=== PATIENT | female | born 1945 | race African-American/Black ===

== ENCOUNTER 2018-09-17 19:49 | Inpatient (IN) ==
[2018-09-17] MEDS ORDERED: ONDANSETRON 4 MG/2 ML VIAL IV STA (20:50)
[2018-09-17 22:50] LABS: Basophils % 0.1 % (0.0-0.8); Eosinophils % 0.1 % (0.00-10.9); Hematocrit 33.8 VOL% (35.7-47.0); Immature Granulocytes % 0.4 %; Immature Granulocytes Absolute 0.03 #; Lymphocytes # 0.2 10*3/uL (1.4-4.0); Lymphocytes % 3.4 % (21.3-54.2); Mean Corpuscular HGB Conc 29.6 GM/DL (32-36); Mean Corpuscular Hemoglobin 29 PG (27-34); Mean Corpuscular Volume 97.7 FL (87-102); Mean Platelet Volume 9.9 FL (9.6-12.0); Monocytes # 0.2 10*3/uL (0.11-0.8); Monocytes % 2.8 % (1.7-12.7); Neutrophils # 6.6 10*3/uL (1.4-7.4); Neutrophils % 93.2 % (38.7-73.9); Platelet Count 165 T/CUMM (130-400); Red Blood Count 3.46 MC/CUMM (3.8-5.5); White Blood Count 7.1 T/CUMM (4-12)
[2018-09-17 23:13] LABS: Albumin 2.8 G/DL (3.4-5.0); Bilirubin,Total 2.8 MG/DL (0.2-1.0); Calcium 7.9 MG/DL (8.5-10.1); Osmolality,Calculated 277.8 MOS/KG (273-304); Potassium 3.3 MMOL/L (3.5-5.1)
[2018-09-18 00:19] LABS: Lymphocytes 4 % (20-55); Platelet Estimate Normal; Segmented Neutrophils 94 % (50-85); Total Cells Counted 100
[2018-09-18] MEDS: HYDROmorphone 2 MG/1 ML VIAL IV PRN (01:30)
[2018-09-18] MEDS: PROMETHAZINE 25 MG/1 ML VIAL IM PRN (01:32)
[2018-09-18 05:09] LABS: Basophils % 0.2 % (0.0-0.8); Hematocrit 38.9 VOL% (35.7-47.0); Hemoglobin 11.3 GM/DL (12.0-16.0); Immature Granulocytes % 0.6 %; Immature Granulocytes Absolute 0.06 #; Lymphocytes # 0.2 10*3/uL (1.4-4.0); Lymphocytes % 1.5 % (21.3-54.2); Mean Corpuscular Hemoglobin 29 PG (27-34); Mean Corpuscular Volume 100.3 FL (87-102); Mean Platelet Volume 10.6 FL (9.6-12.0); Monocytes # 0.1 10*3/uL (0.11-0.8); Monocytes % 1.3 % (1.7-12.7); Neutrophils # 10.1 10*3/uL (1.4-7.4); Neutrophils % 96.4 % (38.7-73.9); Platelet Count 160 T/CUMM (130-400); Red Blood Count 3.88 MC/CUMM (3.8-5.5); Red Cell Distribution Width 17.2 % (9.3-17.3); White Blood Count 10.5 T/CUMM (4-12)
[2018-09-18 05:17] LABS: Albumin 2.9 G/DL (3.4-5.0); Bilirubin,Total 3.7 MG/DL (0.2-1.0); Calcium 8.2 MG/DL (8.5-10.1); Osmolality,Calculated 276.8 MOS/KG (273-304); Potassium 3.3 MMOL/L (3.5-5.1); Total Protein 7.5 G/DL (6.4-8.3)
[2018-09-18 05:32] LABS: Band Neutrophils 10 % (0-10); Lymphocytes 3 % (20-55); Metamyelocytes 3 %; Segmented Neutrophils 82 % (50-85); Total Cells Counted 100
[2018-09-18 05:33] LABS: Hypochromasia 1+; Platelet Estimate Decreased
[2018-09-18] MEDS: LEVOTHYROXINE 100 MCG TABLET PO SCH (05:53)
[2018-09-18] MEDS ORDERED: SUCCINYLCHOLINE 200 MG/10 ML VIAL ONE (09:00)
[2018-09-18] MEDS ORDERED: PROPOFOL 200 MG/20 ML VIAL IV ONE (09:00)
[2018-09-18] MEDS ORDERED: ROCURONIUM 100 MG/10 ML VIAL IV ONE (09:00)
[2018-09-18] MEDS ORDERED: ONDANSETRON 4 MG/2 ML VIAL ONE (09:00)
[2018-09-18] MEDS ORDERED: Sucroferric Oxyhydroxide [Velphoro Chew Tab] 500 MG PO SCH (09:00)
[2018-09-18] MEDS ORDERED: LIDOCAINE 2% 5 ML VIAL ONE (09:00)
[2018-09-18] MEDS ORDERED: PHENYLEPHRINE 1 MG/10 ML SYRINGE IV ONE (09:00)
[2018-09-18] MEDS: CALCIUM ACETATE 667 MG CAPSULE PO SCH ×3 (09:13→16:38)
[2018-09-18] MEDS: CARVEDILOL 3.125 MG TABLET PO SCH ×2 (09:14→20:36)
[2018-09-18] MEDS: DEXTROSE 5% NACL 0.45% 1,000 ML IV SCH (09:35)
[2018-09-18] MEDS ORDERED: SODIUM CHLORIDE 0.9% 500 ML IV PRN (10:14)
[2018-09-18] MEDS ORDERED: INDOMETHACIN SUPP 50 MG SUPP RECTAL ONE (10:16)
[2018-09-18] MEDS: CINACALCET 30 MG TABLET PO SCH (13:11)
[2018-09-18] MEDS ORDERED: GLUCAGON 1 MG VIAL ONE (13:39)
[2018-09-18] MEDS ORDERED: SUGAMMADEX 200 MG/2 ML VIAL IV ONE (14:07)
[2018-09-18] MEDS: SIMVASTATIN 40 MG TABLET PO SCH (20:35)
[2018-09-19] MEDS: DEXTROSE 5% NACL 0.45% 1,000 ML IV SCH ×2 (05:22→12:46)
[2018-09-19 05:23] LABS: Basophils # 0.1 10*3/uL (0.0-0.2); Basophils % 0.3 % (0.0-0.8); Hematocrit 33.2 VOL% (35.7-47.0); Hemoglobin 9.8 GM/DL (12.0-16.0); Immature Granulocytes % 9.1 %; Immature Granulocytes Absolute 2.21 #; Lymphocytes # 0.6 10*3/uL (1.4-4.0); Lymphocytes % 2.4 % (21.3-54.2); Mean Corpuscular HGB Conc 29.5 GM/DL (32-36); Mean Corpuscular Hemoglobin 30 PG (27-34); Mean Corpuscular Volume 100.6 FL (87-102); Mean Platelet Volume 12.5 FL (9.6-12.0); Monocytes # 0.8 10*3/uL (0.11-0.8); Monocytes % 3.3 % (1.7-12.7); Neutrophils # 20.7 10*3/uL (1.4-7.4); Neutrophils % 84.9 % (38.7-73.9); Platelet Count 95 T/CUMM (130-400); Red Cell Distribution Width 17.4 % (9.3-17.3); White Blood Count 24.3 T/CUMM (4-12)
[2018-09-19] MEDS: LEVOTHYROXINE 100 MCG TABLET PO SCH (05:28)
[2018-09-19 05:33] LABS: Albumin 2.1 G/DL (3.4-5.0); Bilirubin,Total 4.3 MG/DL (0.2-1.0); Calcium 7.8 MG/DL (8.5-10.1); Potassium 4.2 MMOL/L (3.5-5.1); Total Protein 6.1 G/DL (6.4-8.3)
[2018-09-19 06:25] LABS: Band Neutrophils 8 % (0-10); Lymphocytes 2 % (20-55); Metamyelocytes 2 %; Platelet Estimate Decreased; Polychromasia Few; Segmented Neutrophils 85 % (50-85); Total Cells Counted 100
[2018-09-19 06:26] LABS: Anisocytosis 2+; Macrocytosis 2+
[2018-09-19] MEDS ORDERED: cefOXitin 1,000 MG in SODIUM CHLORIDE 0.9% 100 ML IV SCH (07:30)
[2018-09-19] MEDS: CALCIUM ACETATE 667 MG CAPSULE PO SCH ×2 (08:51→17:50)
[2018-09-19] MEDS: CARVEDILOL 3.125 MG TABLET PO SCH ×2 (08:52→22:12)
[2018-09-19] MEDS: cefOXitin 1,000 MG in SODIUM CHLORIDE 0.9% 100 ML IV SCH ×2 (08:52→22:12)
[2018-09-19] MEDS ORDERED: LIDOCAINE 1%/EPI INJ 20 ML VIAL ONE (09:58)
[2018-09-19] MEDS ORDERED: TISSUE ADHESIVE 1 EACH APPLICATOR TOP ONE (09:58)
[2018-09-19] MEDS ORDERED: PROPOFOL 200 MG/20 ML VIAL IV ONE (12:23)
[2018-09-19] MEDS ORDERED: SEVOFLURANE 1 UNIT/15 MINUTE INH ONE (12:23)
[2018-09-19] MEDS ORDERED: GLYCOPYRROLATE 0.4 MG/2 ML VIAL ONE (12:24)
[2018-09-19] MEDS ORDERED: KETOROLAC 30 MG/1 ML VIAL ONE (12:24)
[2018-09-19] MEDS ORDERED: ePHEDrine 50 MG/ML AMP ONE (12:24)
[2018-09-19] MEDS ORDERED: ACETAMINOPHEN 1,000 MG/100 ML VIAL IV ONE (12:24)
[2018-09-19] MEDS ORDERED: ONDANSETRON 4 MG/2 ML VIAL ONE ×2 (12:24→12:35)
[2018-09-19] MEDS ORDERED: fentaNYL 100 MCG/2 ML VIAL ONE (12:24)
[2018-09-19] MEDS ORDERED: DEXAMETHASONE 4 MG/1 ML VIAL ONE (12:24)
[2018-09-19] MEDS ORDERED: NEOSTIGMINE 10 MG/10 ML VIAL ONE (12:25)
[2018-09-19] MEDS ORDERED: PHENYLEPHRINE 1 MG/10 ML SYRINGE IV ONE (12:25)
[2018-09-19] MEDS ORDERED: ROCURONIUM 100 MG/10 ML VIAL IV ONE (12:25)
[2018-09-19] MEDS ORDERED: MEPERIDINE 25 MG/1 ML VIAL ONE (12:35)
[2018-09-19] MEDS ORDERED: MEPERIDINE 25 MG/1 ML VIAL IV PRN (12:36)
[2018-09-19] MEDS ORDERED: ONDANSETRON 4 MG/2 ML VIAL IV PRN (12:36)
[2018-09-19] MEDS: CINACALCET 30 MG TABLET PO SCH (12:46)
[2018-09-19] MEDS: HYDROmorphone 2 MG/1 ML VIAL IV PRN (18:05)
[2018-09-19] MEDS: SIMVASTATIN 40 MG TABLET PO SCH (22:12)
[2018-09-20] MEDS ORDERED: PHENOL 1.4% THROAT SPRAY 177 ML BOTTLE PO PRN (03:18)
[2018-09-20] MEDS: DEXTROSE 5% NACL 0.45% 1,000 ML IV SCH ×2 (04:10→18:09)
[2018-09-20] MEDS: LEVOTHYROXINE 100 MCG TABLET PO SCH (06:40)
[2018-09-20] MEDS: CALCIUM ACETATE 667 MG CAPSULE PO SCH ×2 (08:59→17:31)
[2018-09-20] MEDS: CARVEDILOL 3.125 MG TABLET PO SCH ×2 (08:59→22:46)
[2018-09-20] MEDS: cefOXitin 1,000 MG in SODIUM CHLORIDE 0.9% 100 ML IV SCH ×2 (09:00→19:54)
[2018-09-20] MEDS: ONDANSETRON 4 MG/2 ML VIAL IV PRN ×3 (09:59→23:36)
[2018-09-20] MEDS: CINACALCET 30 MG TABLET PO SCH (12:25)
[2018-09-20] MEDS ORDERED: HYDROmorphone 2 MG/1 ML VIAL IV PRN (15:46)
[2018-09-20] MEDS: PROMETHAZINE 25 MG/1 ML VIAL IM PRN (21:13)
[2018-09-20] MEDS: SIMVASTATIN 40 MG TABLET PO SCH (22:47)
[2018-09-21] MEDS: DEXTROSE 5% NACL 0.45% 1,000 ML IV SCH ×2 (05:54→19:00)
[2018-09-21] MEDS: LEVOTHYROXINE 100 MCG TABLET PO SCH (05:55)
[2018-09-21] MEDS: PROMETHAZINE 25 MG/1 ML VIAL IM PRN (08:28)
[2018-09-21] MEDS: CALCIUM ACETATE 667 MG CAPSULE PO SCH ×2 (08:32→16:58)
[2018-09-21] MEDS: cefOXitin 1,000 MG in SODIUM CHLORIDE 0.9% 100 ML IV SCH ×2 (08:33→20:16)
[2018-09-21] MEDS: CARVEDILOL 3.125 MG TABLET PO SCH ×2 (08:43→20:17)
[2018-09-21] MEDS: PANTOPRAZOLE 40 MG TABLET PO SCH (09:38)
[2018-09-21 09:57] LABS: Albumin 1.8 G/DL (3.4-5.0); Bilirubin,Direct 0.5 MG/DL (0.0-0.20); Bilirubin,Indirect 0.4 MG/DL (0.0-1.0); Bilirubin,Total 0.9 MG/DL (0.2-1.0); Total Protein 5.7 G/DL (6.4-8.3)
[2018-09-21] MEDS: METOCLOPRAMIDE 5 MG TABLET PO SCH ×2 (12:10→16:58)
[2018-09-21] MEDS: CINACALCET 30 MG TABLET PO SCH (12:11)
[2018-09-21] MEDS: SIMVASTATIN 40 MG TABLET PO SCH (20:17)
[2018-09-22 05:28] LABS: Basophils % 0.1 % (0.0-0.8); Eosinophils % 0.1 % (0.00-10.9); Hematocrit 28.4 VOL% (35.7-47.0); Hemoglobin 8.5 GM/DL (12.0-16.0); Immature Granulocytes % 0.3 %; Immature Granulocytes Absolute 0.03 #; Lymphocytes % 11.2 % (21.3-54.2); Mean Corpuscular HGB Conc 29.9 GM/DL (32-36); Mean Corpuscular Hemoglobin 29 PG (27-34); Mean Corpuscular Volume 96.3 FL (87-102); Mean Platelet Volume 12.3 FL (9.6-12.0); Monocytes # 0.5 10*3/uL (0.11-0.8); Monocytes % 5.9 % (1.7-12.7); Neutrophils # 7.2 10*3/uL (1.4-7.4); Neutrophils % 82.4 % (38.7-73.9); Platelet Count 94 T/CUMM (130-400); Red Blood Count 2.95 MC/CUMM (3.8-5.5); Red Cell Distribution Width 16.9 % (9.3-17.3); White Blood Count 8.8 T/CUMM (4-12)
[2018-09-22] MEDS: LEVOTHYROXINE 100 MCG TABLET PO SCH (05:49)
[2018-09-22 05:52] LABS: Calcium 7.6 MG/DL (8.5-10.1); Osmolality,Calculated 282.4 MOS/KG (273-304); Potassium 4.4 MMOL/L (3.5-5.1)
[2018-09-22 07:18] LABS: Eosinophils 1 % (0-10); Hypochromasia 1+; Lymphocytes 7 % (20-55); Segmented Neutrophils 87 % (50-85); Total Cells Counted 100
[2018-09-22 07:19] LABS: Macrocytosis 1+; Platelet Estimate Decreased; Target Cells Slight; Tear Drop Cells Slight
[2018-09-22] MEDS: DEXTROSE 5% NACL 0.45% 1,000 ML IV SCH (08:22)
[2018-09-22] MEDS: cefOXitin 1,000 MG in SODIUM CHLORIDE 0.9% 100 ML IV SCH (08:22)
[2018-09-22 12:17] VITALS: BP 149/57
[2018-09-22] MEDS: METOCLOPRAMIDE 5 MG TABLET PO SCH ×2 (14:45→14:54)
[2018-09-22] MEDS: CALCIUM ACETATE 667 MG CAPSULE PO SCH (14:53)
[2018-09-22] MEDS: PANTOPRAZOLE 40 MG TABLET PO SCH (14:54)
[2018-09-22] MEDS: CINACALCET 30 MG TABLET PO SCH (14:54)
[2018-09-22] MEDS: CARVEDILOL 3.125 MG TABLET PO SCH (14:54)
[2018-09-22] MEDS ORDERED: AMOXICILLIN/CLAV 500 MG TABLET PO SCH (17:00)
== END 2018-09-22 15:19 | disposition home or self-care (01) | DRG 417 ==
LOC: EDUNIT# → EDBD → N.ED 19:49 → N.EDINP 09-18 01:11 → SUATTDRO 09-18 01:11 → N.3E 09-18 01:40
PROVIDERS: ADMIT Internal Medicine Geriatric Medicine; ATTEND Emergency Medicine
PROC: ERCPWSP (ICD-10-PCS; 2018-09-18 12:35)
PROC: LAPCHOL (2018-09-19 10:29)

== ENCOUNTER 2020-06-11 15:03 | Inpatient (IN) ==
[2020-06-11] MEDS ORDERED: SODIUM CHLORIDE 0.9% 500 ML IV STA (15:23)
[2020-06-11 16:17] LABS: INR 1.5; PT Patient Result 15.7 SECS (9.8-11.9)
[2020-06-11 16:30] LABS: Basophils % 0.2 % (0.0-0.8); Eosinophils # 0.1 10*3/uL (0.0-0.87); Eosinophils % 1.2 % (0.00-10.9); Immature Granulocytes % 0.2 %; Immature Granulocytes Absolute 0.02 #; Lymphocytes # 0.7 10*3/uL (1.4-4.0); Lymphocytes % 7.9 % (21.3-54.2); Mean Corpuscular HGB Conc 28.6 GM/DL (32-36); Mean Corpuscular Volume 88.6 FL (87-102); Mean Platelet Volume 9.9 FL (9.6-12.0); Monocytes % 4.8 % (1.7-12.7); Neutrophils % 85.7 % (38.7-73.9); Platelet Count 183 T/CUMM (130-400); Red Blood Count 2.37 MC/CUMM (3.8-5.5); Red Cell Distribution Width 19.9 % (9.3-17.3); White Blood Count 8.5 T/CUMM (4-12)
[2020-06-11 16:49] LABS: Calcium 7.9 MG/DL (8.5-10.1)
[2020-06-11 16:53] LABS: Albumin 2.4 G/DL (3.4-5.0); Blood Urea Nitrogen 24 MG/DL (7-18); Glucose 159 MG/DL (74-106); Osmolality,Calculated 281.7 MOS/KG (273-304)
[2020-06-11 16:56] LABS: Alanine Aminotransferase 14 U/L (13-56); Aspartate Amino Transferase 24 U/L (0-37); Estimated Glom Filtration Rate 8 ML/MIN
[2020-06-11 16:58] LABS: Total Protein 6.4 G/DL (6.4-8.3)
[2020-06-11 16:59] LABS: Alkaline Phosphatase 94 U/L (45-117)
[2020-06-11 17:02] LABS: Troponin I 0.061 NG/ML (0.00-0.045)
[2020-06-11] MEDS ORDERED: DEXTROSE 50% 25 GM/50 ML VIAL IV PRN (18:03)
[2020-06-11] MEDS ORDERED: ONDANSETRON 4 MG/2 ML VIAL IV PRN (18:03)
[2020-06-11] MEDS ORDERED: GLUCAGON 1 MG VIAL IM PRN (18:03)
[2020-06-11] MEDS ORDERED: SODIUM CHLORIDE 0.9% 1,000 ML IV PRN (18:07)
[2020-06-12 02:29] LABS: Hematocrit 20.1 VOL% (35.7-47.0)
[2020-06-12 02:38] LABS: Hemoglobin 5.9 GM/DL (12.0-16.0)
[2020-06-12] MEDS ORDERED: SODIUM CHLORIDE 0.9% 1,000 ML IV PRN (05:47)
[2020-06-12 06:33] LABS: Basophils % 0.5 % (0.0-0.8); Eosinophils # 0.1 10*3/uL (0.0-0.87); Eosinophils % 1.6 % (0.00-10.9); Hematocrit 19.5 VOL% (35.7-47.0); Immature Granulocytes % 0.7 %; Immature Granulocytes Absolute 0.04 #; Lymphocytes # 1.3 10*3/uL (1.4-4.0); Lymphocytes % 21.9 % (21.3-54.2); Mean Corpuscular HGB Conc 31.3 GM/DL (32-36); Mean Corpuscular Volume 87.8 FL (87-102); Monocytes % 8.6 % (1.7-12.7); Neutrophils % 66.7 % (38.7-73.9); Platelet Count 165 T/CUMM (130-400); Red Blood Count 2.22 MC/CUMM (3.8-5.5); Red Cell Distribution Width 19.2 % (9.3-17.3); White Blood Count 5.7 T/CUMM (4-12)
[2020-06-12 07:08] LABS: Hemoglobin 6.1 GM/DL (12.0-16.0)
[2020-06-12 07:25] LABS: Calcium 7.9 MG/DL (8.5-10.1); Osmolality,Calculated 279.7 MOS/KG (273-304); Risk Ratio 1.97; Thyroid Stimulating Hormone 1.72 uIU/ml (0.358-3.74); VLDL CHOLESTEROL 9.6 MG/DL
[2020-06-12 08:18] LABS: Troponin I 0.056 NG/ML (0.00-0.045)
[2020-06-12] MEDS: PANTOPRAZOLE 40 MG TABLET PO SCH (10:37)
[2020-06-12] MEDS ORDERED: CINACALCET 30 MG TABLET PO SCH (12:00)
[2020-06-12 14:36] LABS: Hematocrit 24.2 VOL% (35.7-47.0); Hemoglobin 7.2 GM/DL (12.0-16.0)
[2020-06-12] MEDS: CALCIUM ACETATE 667 MG CAPSULE PO SCH (21:16)
[2020-06-12] MEDS: carvediloL 3.125 MG TABLET PO SCH (21:16)
[2020-06-12] MEDS: SIMVASTATIN 40 MG TABLET PO SCH (21:16)
[2020-06-13 05:32] LABS: Basophils % 0.5 % (0.0-0.8); Eosinophils # 0.2 10*3/uL (0.0-0.87); Eosinophils % 2.4 % (0.00-10.9); Hematocrit 20.6 VOL% (35.7-47.0); Hemoglobin 6.5 GM/DL (12.0-16.0); Immature Granulocytes % 0.3 %; Immature Granulocytes Absolute 0.02 #; Lymphocytes # 1.2 10*3/uL (1.4-4.0); Lymphocytes % 17.6 % (21.3-54.2); Mean Corpuscular HGB Conc 31.6 GM/DL (32-36); Monocytes % 9.5 % (1.7-12.7); Neutrophils % 69.7 % (38.7-73.9); Platelet Count 164 T/CUMM (130-400); Red Blood Count 2.34 MC/CUMM (3.8-5.5); Red Cell Distribution Width 18.6 % (9.3-17.3); White Blood Count 6.7 T/CUMM (4-12)
[2020-06-13 05:49] LABS: Calcium 8.2 MG/DL (8.5-10.1); Osmolality,Calculated 280.8 MOS/KG (273-304)
[2020-06-13] MEDS ORDERED: SODIUM CHLORIDE 0.9% 1,000 ML IV PRN ×2 (07:32→09:52)
[2020-06-13 08:11] LABS: INR 1.1; PT Patient Result 11.4 SECS (9.8-11.9)
[2020-06-13] MEDS: PANTOPRAZOLE 40 MG TABLET PO SCH (09:56)
[2020-06-13] MEDS: carvediloL 3.125 MG TABLET PO SCH ×2 (09:56→20:17)
[2020-06-13] MEDS: LEVOTHYROXINE 100 MCG TABLET PO SCH (09:56)
[2020-06-13] MEDS: SUCROFERRIC OXYHYDROXIDE 500 MG PO SCH (09:57)
[2020-06-13] MEDS: CINACALCET 30 MG TABLET PO SCH (09:57)
[2020-06-13] MEDS: CALCIUM ACETATE 667 MG CAPSULE PO SCH ×2 (09:58→17:43)
[2020-06-13] MEDS ORDERED: HEPARIN 1,000 UNIT/1 ML VIAL ONE (14:32)
[2020-06-13] MEDS: ACETAMINOPHEN 325 MG TABLET PO PRN (17:43)
[2020-06-13] MEDS: SIMVASTATIN 40 MG TABLET PO SCH (20:17)
[2020-06-14] MEDS: ACETAMINOPHEN 325 MG TABLET PO PRN ×2 (03:17→13:34)
[2020-06-14 06:29] LABS: Basophils % 0.6 % (0.0-0.8); Eosinophils # 0.1 10*3/uL (0.0-0.87); Eosinophils % 2.2 % (0.00-10.9); Hematocrit 26.7 VOL% (35.7-47.0); Immature Granulocytes % 0.6 %; Immature Granulocytes Absolute 0.03 #; Lymphocytes # 0.9 10*3/uL (1.4-4.0); Lymphocytes % 15.8 % (21.3-54.2); Mean Corpuscular HGB Conc 31.1 GM/DL (32-36); Mean Corpuscular Volume 89.6 FL (87-102); Mean Platelet Volume 9.7 FL (9.6-12.0); Monocytes % 9.6 % (1.7-12.7); Neutrophils % 71.2 % (38.7-73.9); Platelet Count 165 T/CUMM (130-400); Red Cell Distribution Width 18.5 % (9.3-17.3); White Blood Count 5.4 T/CUMM (4-12)
[2020-06-14 06:30] LABS: Calcium 8.1 MG/DL (8.5-10.1); Osmolality,Calculated 283.8 MOS/KG (273-304)
[2020-06-14] MEDS: LEVOTHYROXINE 100 MCG TABLET PO SCH (06:37)
[2020-06-14 06:38] LABS: Hemoglobin 8.3 GM/DL (12.0-16.0); Red Blood Count 2.98 MC/CUMM (3.8-5.5)
[2020-06-14] MEDS: CALCIUM ACETATE 667 MG CAPSULE PO SCH ×2 (08:46→19:04)
[2020-06-14] MEDS: PANTOPRAZOLE 40 MG TABLET PO SCH (08:47)
[2020-06-14] MEDS: CINACALCET 30 MG TABLET PO SCH (08:47)
[2020-06-14] MEDS: carvediloL 3.125 MG TABLET PO SCH (08:47)
[2020-06-14] MEDS: SUCROFERRIC OXYHYDROXIDE 500 MG PO SCH (09:53)
[2020-06-14 11:14] VITALS: BP 127/61
== END 2020-06-14 19:11 | disposition home health service (06) | DRG 252 ==
LOC: EDBD → EDUNIT# → N.ED 15:03 → SUATTDRO 18:00 → N.EDINP 18:00 → N.5E 19:57
PROVIDERS: ADMIT Internal Medicine; ATTEND Internal Medicine

== ENCOUNTER 2021-08-04 08:16 | Inpatient (IN) ==
[2021-08-04 09:34] LABS: Basophils % 0.5 % (0.0-0.8); Eosinophils % 0.5 % (0.00-10.9); Hematocrit 20.8 VOL% (35.7-47.0); Immature Granulocytes % 0.6 %; Immature Granulocytes Absolute 0.04 #; Lymphocytes # 0.6 10*3/uL (1.4-4.0); Lymphocytes % 9.4 % (21.3-54.2); Mean Corpuscular HGB Conc 30.3 GM/DL (32-36); Monocytes % 7.5 % (1.7-12.7); Neutrophils % 81.5 % (38.7-73.9); Platelet Count 304 T/CUMM (130-400); Red Blood Count 2.39 MC/CUMM (3.8-5.5); Red Cell Distribution Width 19.9 % (9.3-17.3); White Blood Count 6.4 T/CUMM (4-12)
[2021-08-04 09:37] LABS: Hemoglobin 6.3 GM/DL (12.0-16.0)
[2021-08-04 09:38] LABS: INR 1.1; PT Patient Result 12.6 SECS (10.5-12.0)
[2021-08-04 09:50] LABS: Albumin 1.5 G/DL (3.4-5.0); Bilirubin,Total 0.8 MG/DL (0.20-1.00); Calcium 8.3 MG/DL (8.5-10.1); Osmolality,Calculated 270.2 MOS/KG (273-304); Potassium 3.2 MMOL/L (3.5-5.1); Total Protein 6.4 G/DL (6.4-8.2)
[2021-08-04] MEDS ORDERED: SODIUM CHLORIDE 0.9% 1,000 ML IV PRN (10:15)
[2021-08-04] MEDS ORDERED: POTASSIUM CHLORIDE 20 MEQ TABLET PO ONE (10:29)
[2021-08-04] MEDS ORDERED: ACETAMINOPHEN 325 MG TABLET PO PRN (10:29)
[2021-08-04] MEDS ORDERED: GLUCAGON 1 MG VIAL IM PRN (10:29)
[2021-08-04] MEDS ORDERED: ONDANSETRON 4 MG/2 ML VIAL IV PRN (10:29)
[2021-08-04] MEDS ORDERED: DEXTROSE 10% 250 ML BAG IV PRN (10:29)
[2021-08-04] MEDS ORDERED: hydrALAZINE 20 MG/1 ML VIAL IV PRN (10:29)
[2021-08-04 11:04] LABS: Thyroid Stimulating Hormone 3.03 uIU/ml (0.358-3.74)
[2021-08-04 12:06] LABS: Hematocrit 21.4 VOL% (35.7-47.0)
[2021-08-04 12:08] LABS: Hemoglobin 6.4 GM/DL (12.0-16.0)
[2021-08-04 16:28] LABS: Hematocrit 19.8 VOL% (35.7-47.0)
[2021-08-04 16:31] LABS: Hemoglobin 5.9 GM/DL (12.0-16.0)
[2021-08-04] MEDS: PANTOPRAZOLE 40 MG VIAL IV SCH (22:29)
[2021-08-04] MEDS: carvediloL 3.125 MG TABLET PO SCH (22:29)
[2021-08-04] MEDS: DOCUSATE SODIUM 100 MG CAPSULE PO SCH (22:29)
[2021-08-04 23:17] LABS: Hematocrit 23.6 VOL% (35.7-47.0)
[2021-08-05 07:05] LABS: Basophils % 0.9 % (0.0-0.8); Eosinophils % 0.9 % (0.00-10.9); Hematocrit 26.5 VOL% (35.7-47.0); Immature Granulocytes % 0.7 %; Immature Granulocytes Absolute 0.03 #; Lymphocytes # 0.7 10*3/uL (1.4-4.0); Lymphocytes % 15.1 % (21.3-54.2); Mean Corpuscular HGB Conc 30.2 GM/DL (32-36); Mean Corpuscular Volume 87.7 FL (87-102); Mean Platelet Volume 10.8 FL (9.6-12.0); Monocytes % 10.5 % (1.7-12.7); Neutrophils % 71.9 % (38.7-73.9); Platelet Count 296 T/CUMM (130-400); Red Blood Count 3.02 MC/CUMM (3.8-5.5); Red Cell Distribution Width 18.3 % (9.3-17.3); White Blood Count 4.6 T/CUMM (4-12)
[2021-08-05 07:32] LABS: Calcium 8.2 MG/DL (8.5-10.1); Potassium 3.5 MMOL/L (3.5-5.1)
[2021-08-05 10:05] LABS: Hepatitis B Core IgM Quant 0.16 Index; Hepatitis B Surface Ag Quant < 0.10 Index; Hepatitis B Surface Ag Result Non-Reactive (NonReactive); Hepatitis C Virus Ab Quant 0.07 Index; Hepatitis C Virus Ab Result Non-Reactive (NonReactive)
[2021-08-05] MEDS: PANTOPRAZOLE 40 MG VIAL IV SCH ×2 (14:22→22:25)
[2021-08-05] MEDS: LEVOTHYROXINE 100 MCG TABLET PO SCH (14:22)
[2021-08-05] MEDS: DOCUSATE SODIUM 100 MG CAPSULE PO SCH ×2 (14:22→22:24)
[2021-08-05] MEDS: carvediloL 3.125 MG TABLET PO SCH ×2 (14:22→22:24)
[2021-08-05] MEDS: SIMVASTATIN 40 MG TABLET PO SCH (14:23)
[2021-08-06 06:42] LABS: Basophils % 0.6 % (0.0-0.8); Eosinophils % 1.2 % (0.00-10.9); Hematocrit 40.3 VOL% (35.7-47.0); Hemoglobin 11.4 GM/DL (12.0-16.0); Immature Granulocytes % 0.3 %; Immature Granulocytes Absolute 0.01 #; Lymphocytes # 0.5 10*3/uL (1.4-4.0); Lymphocytes % 13.3 % (21.3-54.2); Mean Corpuscular HGB Conc 28.3 GM/DL (32-36); Mean Corpuscular Volume 94.2 FL (87-102); Mean Platelet Volume 9.6 FL (9.6-12.0); Monocytes % 10.1 % (1.7-12.7); Neutrophils % 74.5 % (38.7-73.9); Platelet Count 208 T/CUMM (130-400); Red Blood Count 4.28 MC/CUMM (3.8-5.5); Red Cell Distribution Width 18.6 % (9.3-17.3); White Blood Count 3.5 T/CUMM (4-12)
[2021-08-06 06:52] LABS: Calcium 8.5 MG/DL (8.5-10.1); Osmolality,Calculated 272.1 MOS/KG (273-304); Potassium 3.6 MMOL/L (3.5-5.1)
[2021-08-06 06:58] LABS: Folate 5.44 NG/ML (5.38-24.0)
[2021-08-06] MEDS: LEVOTHYROXINE 100 MCG TABLET PO SCH (10:07)
[2021-08-06] MEDS: DOCUSATE SODIUM 100 MG CAPSULE PO SCH ×2 (10:07→22:38)
[2021-08-06] MEDS: SIMVASTATIN 40 MG TABLET PO SCH (10:08)
[2021-08-06] MEDS: PANTOPRAZOLE 40 MG VIAL IV SCH ×2 (10:08→22:38)
[2021-08-06] MEDS: carvediloL 3.125 MG TABLET PO SCH ×2 (10:08→22:38)
[2021-08-06] MEDS ORDERED: ERGOCALCIFEROL 50,000 UNIT CAPSULE PO SCH (13:30)
[2021-08-06] MEDS: traMADol 50 MG TABLET PO PRN (23:53)
[2021-08-07 05:59] LABS: Calcium 7.9 MG/DL (8.5-10.1); Osmolality,Calculated 274.2 MOS/KG (273-304); Potassium 3.8 MMOL/L (3.5-5.1)
[2021-08-07 06:46] LABS: Basophils % 0.4 % (0.0-0.8); Eosinophils % 0.9 % (0.00-10.9); Hematocrit 27.9 VOL% (35.7-47.0); Hemoglobin 8.5 GM/DL (12.0-16.0); Immature Granulocytes % 0.6 %; Immature Granulocytes Absolute 0.03 #; Lymphocytes # 0.5 10*3/uL (1.4-4.0); Lymphocytes % 11.3 % (21.3-54.2); Mean Corpuscular HGB Conc 30.5 GM/DL (32-36); Mean Corpuscular Volume 86.9 FL (87-102); Mean Platelet Volume 10.6 FL (9.6-12.0); Monocytes % 13.2 % (1.7-12.7); Neutrophils % 73.6 % (38.7-73.9); Platelet Count 300 T/CUMM (130-400); Red Blood Count 3.21 MC/CUMM (3.8-5.5); Red Cell Distribution Width 18.5 % (9.3-17.3); White Blood Count 4.7 T/CUMM (4-12)
[2021-08-07] MEDS: SODIUM CHLORIDE 0.9% 1,000 ML IV SCH (08:20)
[2021-08-07] MEDS ORDERED: propofoL 200 MG/20 ML VIAL IV ONE (08:52)
[2021-08-07] MEDS ORDERED: LIDOCAINE 2% 5 ML VIAL ONE (08:52)
[2021-08-07] MEDS ORDERED: CHOLECALCIFEROL 1,000 UNIT TABLET PO SCH (09:00)
[2021-08-07] MEDS: traMADol 50 MG TABLET PO PRN (10:16)
[2021-08-07] MEDS: DOCUSATE SODIUM 100 MG CAPSULE PO SCH ×2 (10:17→21:06)
[2021-08-07] MEDS: PANTOPRAZOLE 40 MG VIAL IV SCH ×2 (10:18→21:16)
[2021-08-07] MEDS: carvediloL 3.125 MG TABLET PO SCH ×2 (10:18→21:07)
[2021-08-07] MEDS: SIMVASTATIN 40 MG TABLET PO SCH (10:18)
[2021-08-07] MEDS: LEVOTHYROXINE 100 MCG TABLET PO SCH (10:19)
[2021-08-07] MEDS ORDERED: BISACODYL 5 MG TABLET PO ONE (13:00)
[2021-08-07 15:23] LABS: Hematocrit 28.6 VOL% (35.7-47.0); Hemoglobin 8.6 GM/DL (12.0-16.0)
[2021-08-07] MEDS ORDERED: POLYETHYLENE GLYCOL POWDER 255 GM BOTTLE PO ONE (18:00)
[2021-08-08 05:51] LABS: INR 1.1; PT Patient Result 12.1 SECS (10.5-12.0)
[2021-08-08 06:09] LABS: Calcium 8.6 MG/DL (8.5-10.1); Osmolality,Calculated 267.8 MOS/KG (273-304); Potassium 3.6 MMOL/L (3.5-5.1)
[2021-08-08 07:33] LABS: Basophils % 0.2 % (0.0-0.8); Eosinophils % 0.4 % (0.00-10.9); Hematocrit 26.3 VOL% (35.7-47.0); Hemoglobin 7.9 GM/DL (12.0-16.0); Immature Granulocytes % 0.6 %; Immature Granulocytes Absolute 0.03 #; Lymphocytes # 0.7 10*3/uL (1.4-4.0); Lymphocytes % 12.9 % (21.3-54.2); Mean Corpuscular Volume 87.7 FL (87-102); Monocytes % 12.7 % (1.7-12.7); Neutrophils % 73.2 % (38.7-73.9); Platelet Count 287 T/CUMM (130-400); Red Cell Distribution Width 18.6 % (9.3-17.3)
[2021-08-08 08:13] LABS: Hypochromia 2+
[2021-08-08 08:14] LABS: Anisocytosis 1+; Microcytosis 1+; Platelet Estimate Normal
[2021-08-08] MEDS: SODIUM CHLORIDE 0.9% 1,000 ML IV SCH (12:18)
[2021-08-08] MEDS: LEVOTHYROXINE 100 MCG TABLET PO SCH (12:18)
[2021-08-08] MEDS: PANTOPRAZOLE 40 MG VIAL IV SCH ×2 (12:19→21:24)
[2021-08-08] MEDS: DOCUSATE SODIUM 100 MG CAPSULE PO SCH ×2 (12:19→22:31)
[2021-08-08] MEDS: SIMVASTATIN 40 MG TABLET PO SCH (12:19)
[2021-08-08] MEDS: carvediloL 3.125 MG TABLET PO SCH ×2 (12:19→21:24)
[2021-08-08] MEDS: traMADol 50 MG TABLET PO PRN (14:46)
[2021-08-08 16:09] LABS: Hematocrit 28.9 VOL% (35.7-47.0); Hemoglobin 8.7 GM/DL (12.0-16.0)
[2021-08-08] MEDS ORDERED: MAGNESIUM SULF RIDER 2 GM/50 ML PREMIX IV ONE (17:00)
[2021-08-09 01:27] LABS: Hemoglobin 7.7 GM/DL (12.0-16.0)
[2021-08-09 05:37] LABS: Basophils % 0.2 % (0.0-0.8); Eosinophils % 0.7 % (0.00-10.9); Hematocrit 25.3 VOL% (35.7-47.0); Hemoglobin 7.7 GM/DL (12.0-16.0); Immature Granulocytes % 0.5 %; Immature Granulocytes Absolute 0.03 #; Lymphocytes # 0.7 10*3/uL (1.4-4.0); Lymphocytes % 11.6 % (21.3-54.2); Mean Corpuscular HGB Conc 30.4 GM/DL (32-36); Mean Corpuscular Volume 88.5 FL (87-102); Mean Platelet Volume 10.4 FL (9.6-12.0); Monocytes % 12.9 % (1.7-12.7); Neutrophils % 74.1 % (38.7-73.9); Platelet Count 235 T/CUMM (130-400); Red Blood Count 2.86 MC/CUMM (3.8-5.5); Red Cell Distribution Width 18.6 % (9.3-17.3); White Blood Count 5.7 T/CUMM (4-12)
[2021-08-09 05:45] LABS: Calcium 8.1 MG/DL (8.5-10.1); Osmolality,Calculated 275.1 MOS/KG (273-304); Potassium 3.9 MMOL/L (3.5-5.1)
[2021-08-09] MEDS: LEVOTHYROXINE 100 MCG TABLET PO SCH (06:06)
[2021-08-09 08:21] VITALS: BP 113/65
[2021-08-09] MEDS: DOCUSATE SODIUM 100 MG CAPSULE PO SCH (10:44)
[2021-08-09] MEDS: PANTOPRAZOLE 40 MG VIAL IV SCH (10:45)
[2021-08-09] MEDS: SIMVASTATIN 40 MG TABLET PO SCH (10:45)
[2021-08-09] MEDS: carvediloL 3.125 MG TABLET PO SCH (10:45)
== END 2021-08-09 17:01 | disposition home health service (06) | DRG 368 ==
LOC: N.ED 08:16 → SUATTDRO 10:16 → N.EDINP 10:16 → N.5E 11:34
PROVIDERS: ADMIT Emergency Medicine; ATTEND Internal Medicine

== ENCOUNTER 2021-08-22 09:54 | Observation (INO) ==
[2021-08-22 10:59] LABS: Basophils % 0.4 % (0.0-0.8); Eosinophils % 0.3 % (0.00-10.9); Hematocrit 23.9 VOL% (35.7-47.0); Immature Granulocytes % 0.7 %; Immature Granulocytes Absolute 0.05 #; Lymphocytes # 0.8 10*3/uL (1.4-4.0); Lymphocytes % 10.6 % (21.3-54.2); Mean Corpuscular HGB Conc 29.3 GM/DL (32-36); Mean Corpuscular Volume 86.6 FL (87-102); Monocytes % 8.1 % (1.7-12.7); Neutrophils % 79.9 % (38.7-73.9); Platelet Count 271 T/CUMM (130-400); Red Blood Count 2.76 MC/CUMM (3.8-5.5); Red Cell Distribution Width 19.9 % (9.3-17.3); White Blood Count 7.2 T/CUMM (4-12)
[2021-08-22 11:07] LABS: INR 1.1; PT Patient Result 12.1 SECS (10.5-12.0)
[2021-08-22 11:21] LABS: Alanine Aminotransferase < 9 U/L (13-56); Albumin 1.5 G/DL (3.4-5.0); Alkaline Phosphatase 104 U/L (45-117); Aspartate Amino Transferase 14 U/L (0-37); Blood Urea Nitrogen 41 MG/DL (7-18); Carbon Dioxide 30 MMOL/L (21-32); Estimated Glom Filtration Rate 9 ML/MIN; Glucose 83 MG/DL (74-106); Potassium 3.4 MMOL/L (3.5-5.1); Sodium 136 MMOL/L (136-145); Total Protein 6.2 G/DL (6.4-8.2)
[2021-08-22] MEDS ORDERED: ASPIRIN 325 MG TABLET PO STA (11:26)
[2021-08-22] MEDS ORDERED: ONDANSETRON 4 MG/2 ML VIAL IV PRN (12:25)
[2021-08-22] MEDS ORDERED: GLUCAGON 1 MG VIAL IM PRN (12:25)
[2021-08-22] MEDS ORDERED: NICOTINE 21 MG/24 HR PATCH TRANSDERM PRN (12:25)
[2021-08-22] MEDS ORDERED: SODIUM CHLORIDE 0.9% 1,000 ML IV PRN ×2 (12:25→15:17)
[2021-08-22] MEDS ORDERED: DEXTROSE 10% 250 ML BAG IV PRN (12:25)
[2021-08-22] MEDS: HEPARIN 5,000 UNIT/1 ML VIAL SUBCUT SCH (13:29)
[2021-08-22] MEDS ORDERED: traMADol 50 MG TABLET PO PRN (15:14)
[2021-08-22] MEDS: carvediloL 3.125 MG TABLET PO SCH (21:11)
[2021-08-22] MEDS: SIMVASTATIN 40 MG TABLET PO SCH (21:11)
[2021-08-23] MEDS: INSULIN LISPRO 100 UNIT/ML SUBCUT SCH ×3 (02:40→17:19)
[2021-08-23] MEDS: CALCIUM ACETATE 667 MG CAPSULE PO SCH ×4 (02:40→17:01)
[2021-08-23 05:40] LABS: Basophils % 0.6 % (0.0-0.8); Eosinophils % 0.4 % (0.00-10.9); Hemoglobin 7.2 GM/DL (12.0-16.0); Immature Granulocytes % 0.8 %; Immature Granulocytes Absolute 0.04 #; Lymphocytes # 0.8 10*3/uL (1.4-4.0); Lymphocytes % 16.9 % (21.3-54.2); Mean Corpuscular Volume 94.3 FL (87-102); Mean Platelet Volume 10.1 FL (9.6-12.0); Monocytes % 9.8 % (1.7-12.7); Neutrophils % 71.5 % (38.7-73.9); Platelet Count 235 T/CUMM (130-400); Red Blood Count 2.83 MC/CUMM (3.8-5.5); Red Cell Distribution Width 20.2 % (9.3-17.3); White Blood Count 4.9 T/CUMM (4-12)
[2021-08-23 05:41] LABS: Hematocrit 26.7 VOL% (35.7-47.0)
[2021-08-23 05:45] LABS: Hypochromia 2+; Microcytosis 1+
[2021-08-23 05:46] LABS: Acanthocytes Few; Burr Cells Slight; Ovalocytes Slight; Platelet Estimate Normal
[2021-08-23 06:03] LABS: Calcium 8.1 MG/DL (8.5-10.1); Potassium 3.6 MMOL/L (3.5-5.1)
[2021-08-23 06:18] LABS: Risk Ratio 2.41; VLDL Cholesterol 8.4 MG/DL
[2021-08-23 06:30] LABS: Free T4 (Free Thyroxine) 1.27 NG/DL (0.76-1.46)
[2021-08-23] MEDS: PANTOPRAZOLE 40 MG TABLET PO SCH (09:49)
[2021-08-23] MEDS: carvediloL 3.125 MG TABLET PO SCH ×2 (09:49→20:48)
[2021-08-23] MEDS: HEPARIN 5,000 UNIT/1 ML VIAL SUBCUT SCH ×2 (09:49→20:48)
[2021-08-23] MEDS ORDERED: TUBERCULIN SKIN TEST 0.1 ML SYRINGE INTRADERM ONE (16:00)
[2021-08-23] MEDS: SIMVASTATIN 40 MG TABLET PO SCH (20:48)
[2021-08-24] MEDS: INSULIN LISPRO 100 UNIT/ML SUBCUT SCH ×2 (07:53→16:12)
[2021-08-24 08:23] LABS: Hematocrit 23.9 VOL% (35.7-47.0)
[2021-08-24 08:45] LABS: Calcium 8.5 MG/DL (8.5-10.1); Osmolality,Calculated 276.1 MOS/KG (273-304); Potassium 3.9 MMOL/L (3.5-5.1)
[2021-08-24] MEDS: CALCIUM ACETATE 667 MG CAPSULE PO SCH ×3 (08:55→16:12)
[2021-08-24] MEDS: PANTOPRAZOLE 40 MG TABLET PO SCH (08:56)
[2021-08-24] MEDS: carvediloL 3.125 MG TABLET PO SCH ×2 (08:56→21:16)
[2021-08-24] MEDS: HEPARIN 5,000 UNIT/1 ML VIAL SUBCUT SCH ×2 (08:56→21:18)
[2021-08-24] MEDS ORDERED: SODIUM CHLORIDE 0.9% 1,000 ML IV PRN (09:47)
[2021-08-24 19:57] LABS: Hematocrit 24.3 VOL% (35.7-47.0); Hemoglobin 7.3 GM/DL (12.0-16.0)
[2021-08-24] MEDS: SIMVASTATIN 40 MG TABLET PO SCH (21:16)
[2021-08-25 05:46] LABS: Hematocrit 24.4 VOL% (35.7-47.0); Hemoglobin 7.2 GM/DL (12.0-16.0)
[2021-08-25 06:05] LABS: Calcium 8.3 MG/DL (8.5-10.1); Osmolality,Calculated 272.1 MOS/KG (273-304); Potassium 4.1 MMOL/L (3.5-5.1)
[2021-08-25 08:13] VITALS: BP 133/72
[2021-08-25] MEDS: carvediloL 3.125 MG TABLET PO SCH (09:47)
[2021-08-25] MEDS: CALCIUM ACETATE 667 MG CAPSULE PO SCH (09:47)
[2021-08-25] MEDS: PANTOPRAZOLE 40 MG TABLET PO SCH (09:47)
[2021-08-25] MEDS: HEPARIN 5,000 UNIT/1 ML VIAL SUBCUT SCH (09:47)
[2021-08-29] MEDS ORDERED: ERGOCALCIFEROL 50,000 UNIT CAPSULE PO SCH (09:00)
== END 2021-08-25 10:30 | disposition home health service (06) ==
LOC: N.EDINP 09:54 → N.ED 09:54 → N.EDINP 18:52 → N.3E 18:58 → SUATTDRO 08-23 14:11
PROVIDERS: ADMIT Internal Medicine; ATTEND Hospitalist

== ENCOUNTER 2021-09-04 13:42 | Inpatient (IN) ==
[2021-09-04] MEDS ORDERED: LIDOCAINE 2% 20 ML VIAL ONE (14:10)
[2021-09-04 14:47] LABS: Basophils % 0.2 % (0.0-0.8); Hematocrit 23.8 VOL% (35.7-47.0); Immature Granulocytes % 0.8 %; Immature Granulocytes Absolute 0.08 #; Lymphocytes % 9.6 % (21.3-54.2); Mean Corpuscular HGB Conc 29.4 GM/DL (32-36); Mean Platelet Volume 11.5 FL (9.6-12.0); Monocytes % 7.7 % (1.7-12.7); Neutrophils % 81.7 % (38.7-73.9); Platelet Count 306 T/CUMM (130-400); Red Cell Distribution Width 19.6 % (9.3-17.3); White Blood Count 10.1 T/CUMM (4-12)
[2021-09-04] MEDS ORDERED: VANCOMYCIN INJ 1,500 MG in SODIUM CHLORIDE 0.9% 250 ML IV STA (14:48)
[2021-09-04] MEDS ORDERED: VANCOMYCIN INJ 1,500 MG in SODIUM CHLORIDE 0.9% 500 ML IV STA (15:01)
[2021-09-04 15:04] LABS: Calcium 8.9 MG/DL (8.5-10.1); Osmolality,Calculated 274.5 MOS/KG (273-304); Potassium 3.8 MMOL/L (3.5-5.1); Uric Acid 3.1 MG/DL (2.6-6.0)
[2021-09-04 15:15] LABS: Lymphocytes 10 % (20-55); Segmented Neutrophils 87 % (50-85); Total Cells Counted 100
[2021-09-04 15:16] LABS: Hypochromia 2+; Toxic Granulation 1+
[2021-09-04 15:17] LABS: Polychromasia 1+
[2021-09-04 15:18] LABS: Anisocytosis 2+; Poikilocytosis 1+
[2021-09-04 15:19] LABS: Platelet Estimate Increased
[2021-09-04] MEDS ORDERED: DEXTROSE 50% 25 GM/50 ML VIAL IV PRN (16:23)
[2021-09-04] MEDS ORDERED: hydrALAZINE 20 MG/1 ML VIAL IV PRN (16:23)
[2021-09-04] MEDS ORDERED: ACETAMINOPHEN 325 MG TABLET PO PRN (16:23)
[2021-09-04] MEDS ORDERED: ALBUTEROL/IPRATROPIUM 3 ML NEB RESP TX PRN (16:23)
[2021-09-04] MEDS ORDERED: MORPHINE 2 MG/1 ML SYRINGE IV PRN (16:23)
[2021-09-04] MEDS ORDERED: DOCUSATE SODIUM 100 MG CAPSULE PO PRN (16:23)
[2021-09-04] MEDS ORDERED: diphenhydrAMINE CAP 25 MG CAPSULE PO PRN (16:23)
[2021-09-04] MEDS ORDERED: NICOTINE 21 MG/24 HR PATCH TRANSDERM PRN (16:23)
[2021-09-04] MEDS ORDERED: ONDANSETRON 4 MG/2 ML VIAL IV PRN (16:23)
[2021-09-04] MEDS ORDERED: guaiFENesin/DM ER 600-30 MG TABLET PO PRN (16:23)
[2021-09-04] MEDS ORDERED: ZALEPLON 5 MG CAPSULE PO PRN (16:23)
[2021-09-04] MEDS ORDERED: CALCIUM CARBONATE CHEW 500 MG TABLET PO PRN (16:23)
[2021-09-04] MEDS ORDERED: GLUCAGON 1 MG VIAL IM PRN ×2 (16:23)
[2021-09-04] MEDS ORDERED: DEXTROSE 10% 250 ML BAG IV PRN (16:27)
[2021-09-04] MEDS ORDERED: HEPARIN 5,000 UNIT/1 ML VIAL SUBCUT SCH (16:30)
[2021-09-04] MEDS: INSULIN LISPRO 100 UNIT/ML SUBCUT SCH ×2 (17:06→21:46)
[2021-09-04] MEDS ORDERED: VANCOMYCIN INJ 1,000 MG in SODIUM CHLORIDE 0.9% 250 ML IV ONE (18:00)
[2021-09-04] MEDS ORDERED: VANCOMYCIN INJ 750 MG in SODIUM CHLORIDE 0.9% 250 ML IV PRN (18:07)
[2021-09-04] MEDS: CLINDAMYCIN INJ 600 MG/50 ML PREMIX IV SCH ×2 (21:42→21:46)
[2021-09-05] MEDS: CLINDAMYCIN INJ 600 MG/50 ML PREMIX IV SCH (03:37)
[2021-09-05 06:08] LABS: Basophils % 0.2 % (0.0-0.8); Hematocrit 24.5 VOL% (35.7-47.0); Hemoglobin 7.3 GM/DL (12.0-16.0); Immature Granulocytes % 0.8 %; Immature Granulocytes Absolute 0.07 #; Lymphocytes # 1.2 10*3/uL (1.4-4.0); Lymphocytes % 12.7 % (21.3-54.2); Mean Corpuscular HGB Conc 29.8 GM/DL (32-36); Mean Corpuscular Volume 85.1 FL (87-102); Mean Platelet Volume 10.8 FL (9.6-12.0); Neutrophils % 77.3 % (38.7-73.9); Platelet Count 284 T/CUMM (130-400); Red Blood Count 2.88 MC/CUMM (3.8-5.5); Red Cell Distribution Width 19.4 % (9.3-17.3); White Blood Count 9.2 T/CUMM (4-12)
[2021-09-05 06:29] LABS: Eosinophils 2 % (0-10); Hypochromia 1+; Lymphocytes 9 % (20-55); Platelet Estimate Adequate; Segmented Neutrophils 82 % (50-85); Total Cells Counted 100
[2021-09-05 06:43] LABS: Calcium 9.2 MG/DL (8.5-10.1); Osmolality,Calculated 267.1 MOS/KG (273-304); Potassium 4.5 MMOL/L (3.5-5.1)
[2021-09-05] MEDS ORDERED: SODIUM CHLORIDE 0.9% 1,000 ML IV PRN ×2 (06:57→08:38)
[2021-09-05] MEDS: INSULIN LISPRO 100 UNIT/ML SUBCUT SCH ×3 (08:37→17:31)
[2021-09-05 11:17] LABS: Hepatitis B Surface Ag Quant < 0.10 Index; Hepatitis B Surface Ag Result Non-Reactive (NonReactive); Hepatitis C Virus Ab Quant 0.15 Index; Hepatitis C Virus Ab Result Non-Reactive (NonReactive)
[2021-09-05] MEDS: PANTOPRAZOLE 40 MG TABLET PO SCH (12:20)
[2021-09-05 13:02] LABS: Calcium 8.8 MG/DL (8.5-10.1); Osmolality,Calculated 271.2 MOS/KG (273-304); Potassium 3.8 MMOL/L (3.5-5.1)
[2021-09-05] MEDS ORDERED: ETOMIDATE 40 MG/20 ML VIAL IV ONE (13:15)
[2021-09-05] MEDS ORDERED: ROCURONIUM 50 MG/5 ML VIAL IV ONE (13:15)
[2021-09-05] MEDS ORDERED: fentaNYL 100 MCG/2 ML VIAL ONE (13:15)
[2021-09-05] MEDS ORDERED: SEVOFLURANE 1 UNIT/15 MINUTE INH ONE ×9 (13:15→15:26)
[2021-09-05] MEDS ORDERED: LIDOCAINE 2% 5 ML VIAL ONE (13:15)
[2021-09-05] MEDS ORDERED: ePHEDrine 50 MG/ML VIAL ONE (13:39)
[2021-09-05] MEDS ORDERED: propofoL 200 MG/20 ML VIAL IV ONE (14:31)
[2021-09-05] MEDS ORDERED: SODIUM CHLORIDE 0.9% 250 ML IV ONE (14:31)
[2021-09-05] MEDS ORDERED: SODIUM CHLORIDE 0.9% 100 ML IV ONE (14:31)
[2021-09-05] MEDS ORDERED: BACITRACIN OINT 0.9 GM PACK TOP ONE (15:14)
[2021-09-05] MEDS ORDERED: PHENYLEPHRINE 1 MG/10 ML SYRINGE IV ONE ×2 (15:25→16:53)
[2021-09-05] MEDS ORDERED: GLYCOPYRROLATE 0.4 MG/2 ML VIAL ONE (15:33)
[2021-09-05] MEDS ORDERED: NEOSTIGMINE 10 MG/10 ML VIAL ONE (15:34)
[2021-09-05] MEDS ORDERED: MAGNESIUM HYDROXIDE SUSP 30 ML UDCUP PO PRN (15:48)
[2021-09-05] MEDS ORDERED: MORPHINE 2 MG/1 ML SYRINGE IV PRN (15:48)
[2021-09-05] MEDS ORDERED: SODIUM CHLORIDE 0.9% 1,000 ML IV SCH (16:00)
[2021-09-05] MEDS ORDERED: ESMOLOL 100 MG/10 ML VIAL IV ONE ×4 (16:06→16:10)
[2021-09-05] MEDS ORDERED: MEPERIDINE 25 MG/1 ML VIAL IV ONE ×2 (16:20→16:55)
[2021-09-05] MEDS ORDERED: METOCLOPRAMIDE 10 MG/2 ML VIAL IV ONE (16:20)
[2021-09-05] MEDS ORDERED: METOCLOPRAMIDE 10 MG/2 ML VIAL ONE (16:23)
[2021-09-05] MEDS ORDERED: MEPERIDINE 25 MG/1 ML VIAL ONE (16:32)
[2021-09-05] MEDS ORDERED: VANCOMYCIN INJ 750 MG in SODIUM CHLORIDE 0.9% 250 ML IV ONE (17:00)
[2021-09-05] MEDS: PIPERACILLIN/TAZOBACTAM 3,375 MG in SODIUM CHLORIDE 0.9% 100 ML IV SCH (17:44)
[2021-09-05] MEDS: MORPHINE 2 MG/1 ML SYRINGE IV PRN ×2 (17:44→21:12)
[2021-09-05] MEDS ORDERED: ADENOSINE 6 MG/2 ML VIAL IV ONE ×3 (20:36→23:25)
[2021-09-05] MEDS ORDERED: ADENOSINE 6 MG/2 ML VIAL ONE (20:38)
[2021-09-05] MEDS ORDERED: ROCURONIUM 100 MG/10 ML VIAL IV ONE (20:39)
[2021-09-05] MEDS ORDERED: ETOMIDATE 20 MG/10 ML VIAL IV ONE (20:39)
[2021-09-05] MEDS ORDERED: AMIODARONE 450 MG/9 ML VIAL IV ONE (20:42)
[2021-09-05] MEDS ORDERED: AMIODARONE 150 MG/3 ML VIAL ONE (20:47)
[2021-09-05] MEDS ORDERED: AMIODARONE INJ 150 MG in DEXTROSE 5% 100 ML IV ONE (20:47)
[2021-09-05] MEDS ORDERED: AMIODARONE INJ 450 MG in DEXTROSE 5% 241 ML IV SCH (20:48)
[2021-09-05 20:59] LABS: Arterial Base Excess iSTAT 3 MMOL/L (-2.5-2.5); Arterial Bicarbonate iSTAT 26.9 MMOL/L (20-26); Arterial O2 Saturation iSTAT 100 % (95-100); Arterial PCO2 iSTAT 37 MM HG (35-48); Arterial PO2 iSTAT 292 MM HG (80-95); Arterial Total CO2 iSTAT 28 MMO/L (23-27); Arterial pH iSTAT 7.465 (7.35-7.45)
[2021-09-05] MEDS ORDERED: DOCUSATE SODIUM 100 MG CAPSULE PO SCH (21:00)
[2021-09-05 21:19] LABS: Alanine Aminotransferase < 6 U/L (13-56); Albumin 1.1 G/DL (3.4-5.0); Alkaline Phosphatase 89 U/L (45-117); Aspartate Amino Transferase 11 U/L (0-37); Blood Urea Nitrogen 30 MG/DL (7-18); Calcium 8.5 MG/DL (8.5-10.1); Carbon Dioxide 27 MMOL/L (21-32); Estimated Glom Filtration Rate 13 ML/MIN; Glucose 144 MG/DL (74-106); Osmolality,Calculated 276.2 MOS/KG (273-304); Potassium 4.2 MMOL/L (3.5-5.1); Sodium 134 MMOL/L (136-145); Total Protein 5.8 G/DL (6.4-8.2)
[2021-09-05 21:25] LABS: Basophils % 0.2 % (0.0-0.8); Hemoglobin 8.6 GM/DL (12.0-16.0); Immature Granulocytes Absolute 0.17 #; Lymphocytes % 6.1 % (21.3-54.2); Mean Corpuscular HGB Conc 30.7 GM/DL (32-36); Mean Corpuscular Volume 86.2 FL (87-102); Mean Platelet Volume 11.2 FL (9.6-12.0); Monocytes % 4.9 % (1.7-12.7); Neutrophils % 87.8 % (38.7-73.9); Platelet Count 297 T/CUMM (130-400); Red Blood Count 3.25 MC/CUMM (3.8-5.5); Red Cell Distribution Width 17.6 % (9.3-17.3); White Blood Count 16.2 T/CUMM (4-12)
[2021-09-05 21:47] LABS: Band Neutrophils 5 % (0-10); Lymphocytes 3 % (20-55); Platelet Estimate Normal; Segmented Neutrophils 88 % (50-85); Total Cells Counted 100
[2021-09-05] MEDS ORDERED: SODIUM CHLORIDE 0.9% 750 ML IV ONE ×2 (23:26→23:36)
[2021-09-05] MEDS ORDERED: MIDAZOLAM 10 MG/2 ML VIAL ONE (23:32)
[2021-09-05] MEDS ORDERED: MIDAZOLAM 2 MG/2 ML VIAL IV ONE (23:33)
[2021-09-05] MEDS ORDERED: AMIODARONE 150 MG/3 ML VIAL IV ONE (23:49)
[2021-09-06] MEDS: INSULIN LISPRO 100 UNIT/ML SUBCUT SCH ×5 (00:51→20:05)
[2021-09-06 03:34] LABS: Basophils % 0.3 % (0.0-0.8); Hematocrit 25.3 VOL% (35.7-47.0); Hemoglobin 7.6 GM/DL (12.0-16.0); Immature Granulocytes Absolute 0.13 #; Lymphocytes # 0.9 10*3/uL (1.4-4.0); Lymphocytes % 6.7 % (21.3-54.2); Mean Corpuscular Volume 85.2 FL (87-102); Mean Platelet Volume 10.3 FL (9.6-12.0); Monocytes % 6.8 % (1.7-12.7); NRBC # 0.03 10*3/uL; Neutrophils % 85.2 % (38.7-73.9); Platelet Count 248 T/CUMM (130-400); Red Blood Count 2.97 MC/CUMM (3.8-5.5); Red Cell Distribution Width 17.4 % (9.3-17.3)
[2021-09-06 03:52] LABS: Band Neutrophils 1 % (0-10); Hypochromia 1+; Lymphocytes 5 % (20-55); Microcytosis 1+; Platelet Estimate Adequate; Segmented Neutrophils 91 % (50-85); Total Cells Counted 100
[2021-09-06 03:56] LABS: Calcium 8.3 MG/DL (8.5-10.1); Osmolality,Calculated 277.1 MOS/KG (273-304); Potassium 4.1 MMOL/L (3.5-5.1)
[2021-09-06] MEDS: PIPERACILLIN/TAZOBACTAM 3,375 MG in SODIUM CHLORIDE 0.9% 100 ML IV SCH ×2 (04:00→15:44)
[2021-09-06] MEDS: PANTOPRAZOLE 40 MG TABLET PO SCH (08:13)
[2021-09-06] MEDS ORDERED: DIGOXIN 0.5 MG/2 ML AMP IV ONE (10:40)
[2021-09-06] MEDS ORDERED: AMIODARONE INJ 450 MG in DEXTROSE 5% 241 ML IV SCH (11:00)
[2021-09-06] MEDS ORDERED: METOPROLOL TARTRATE 5 MG/5 ML VIAL IV ONE (11:24)
[2021-09-06] MEDS ORDERED: METOPROLOL TARTRATE 5 MG/5 ML VIAL IV PRN (13:43)
[2021-09-06] MEDS: MORPHINE 2 MG/1 ML SYRINGE IV PRN ×2 (13:55→17:28)
[2021-09-06] MEDS: METOPROLOL SUCCINATE XL 25 MG TABLET PO SCH (14:32)
[2021-09-06] MEDS: AMIODARONE INJ 450 MG in DEXTROSE 5% 241 ML IV SCH (19:42)
[2021-09-06] MEDS ORDERED: ADENOSINE 6 MG/2 ML VIAL ONE (23:25)
[2021-09-06] MEDS ORDERED: AMIODARONE 150 MG/3 ML VIAL ONE (23:25)
[2021-09-07] MEDS: AMIODARONE INJ 450 MG in DEXTROSE 5% 241 ML IV SCH ×3 (02:54→18:54)
[2021-09-07] MEDS: MORPHINE 2 MG/1 ML SYRINGE IV PRN (02:59)
[2021-09-07] MEDS: PIPERACILLIN/TAZOBACTAM 3,375 MG in SODIUM CHLORIDE 0.9% 100 ML IV SCH (03:55)
[2021-09-07 04:25] LABS: Basophils % 0.2 % (0.0-0.8); Hematocrit 27.3 VOL% (35.7-47.0); Hemoglobin 8.5 GM/DL (12.0-16.0); Immature Granulocytes % 1.4 %; Immature Granulocytes Absolute 0.21 #; Lymphocytes # 1.2 10*3/uL (1.4-4.0); Lymphocytes % 7.9 % (21.3-54.2); Mean Corpuscular HGB Conc 31.1 GM/DL (32-36); Mean Corpuscular Volume 83.7 FL (87-102); Monocytes % 4.6 % (1.7-12.7); NRBC # 0.02 10*3/uL; Neutrophils % 85.9 % (38.7-73.9); Platelet Count 257 T/CUMM (130-400); Red Blood Count 3.26 MC/CUMM (3.8-5.5); Red Cell Distribution Width 18.2 % (9.3-17.3); White Blood Count 14.8 T/CUMM (4-12)
[2021-09-07] MEDS: METOPROLOL SUCCINATE XL 25 MG TABLET PO SCH (08:17)
[2021-09-07] MEDS: INSULIN LISPRO 100 UNIT/ML SUBCUT SCH ×4 (08:17→20:04)
[2021-09-07] MEDS: PANTOPRAZOLE 40 MG TABLET PO SCH (08:17)
[2021-09-07 09:08] LABS: Alanine Aminotransferase < 6 U/L (13-56); Alkaline Phosphatase 76 U/L (45-117); Aspartate Amino Transferase 10 U/L (0-37); Blood Urea Nitrogen 40 MG/DL (7-18); Calcium 8.4 MG/DL (8.5-10.1); Carbon Dioxide 25 MMOL/L (21-32); Estimated Glom Filtration Rate 10 ML/MIN; Glucose 137 MG/DL (74-106); Osmolality,Calculated 277.4 MOS/KG (273-304); Potassium 4.6 MMOL/L (3.5-5.1); Sodium 133 MMOL/L (136-145); Total Protein 5.8 G/DL (6.4-8.2)
[2021-09-07] MEDS ORDERED: propofoL 200 MG/20 ML VIAL IV ONE (09:21)
[2021-09-07] MEDS ORDERED: fentaNYL 100 MCG/2 ML VIAL ONE (09:21)
[2021-09-07] MEDS ORDERED: ONDANSETRON 4 MG/2 ML VIAL ONE ×2 (09:21→11:07)
[2021-09-07] MEDS ORDERED: SEVOFLURANE 1 UNIT/15 MINUTE INH ONE ×5 (09:21→11:45)
[2021-09-07] MEDS ORDERED: ROCURONIUM 50 MG/5 ML VIAL IV ONE (09:21)
[2021-09-07] MEDS ORDERED: LIDOCAINE 2% 5 ML VIAL ONE (09:21)
[2021-09-07] MEDS ORDERED: SODIUM CHLORIDE 0.9% 250 ML IV SCH (10:00)
[2021-09-07] MEDS ORDERED: PHENYLEPHRINE 10 MG/1 ML VIAL IV ONE ×2 (10:34→11:08)
[2021-09-07] MEDS ORDERED: PHENYLEPHRINE 1 MG/10 ML SYRINGE IV ONE (11:07)
[2021-09-07] MEDS ORDERED: ETOMIDATE 40 MG/20 ML VIAL IV ONE (11:07)
[2021-09-07] MEDS ORDERED: SODIUM CHLORIDE 0.9% 100 ML IV ONE (11:07)
[2021-09-07] MEDS ORDERED: methylPREDNISolone SOD SUC 125 MG/2 ML VIAL ONE (11:07)
[2021-09-07] MEDS ORDERED: SUGAMMADEX 200 MG/2 ML VIAL IV ONE (11:27)
[2021-09-07] MEDS ORDERED: SODIUM CHLORIDE 0.9% 250 ML IV ONE (11:48)
[2021-09-07] MEDS ORDERED: MEPERIDINE 25 MG/1 ML VIAL ONE (12:19)
[2021-09-07 12:31] LABS: Hematocrit 28.4 VOL% (35.7-47.0); Hemoglobin 8.7 GM/DL (12.0-16.0)
[2021-09-07] MEDS ORDERED: MEPERIDINE 25 MG/1 ML VIAL IV PRN (12:32)
[2021-09-07] MEDS: cefTRIAXone 2,000 MG in SODIUM CHLORIDE 0.9% 100 ML IV SCH (13:37)
[2021-09-07] MEDS: HYDROCORTISONE 100 MG VIAL IV SCH ×2 (13:37→22:19)
[2021-09-08 03:52] LABS: Basophils % 0.2 % (0.0-0.8); Hematocrit 28.6 VOL% (35.7-47.0); Hemoglobin 8.6 GM/DL (12.0-16.0); Immature Granulocytes % 1.2 %; Immature Granulocytes Absolute 0.22 #; Lymphocytes # 0.8 10*3/uL (1.4-4.0); Lymphocytes % 4.5 % (21.3-54.2); Mean Corpuscular HGB Conc 30.1 GM/DL (32-36); Mean Corpuscular Volume 85.9 FL (87-102); Mean Platelet Volume 11.4 FL (9.6-12.0); Monocytes % 2.3 % (1.7-12.7); NRBC # 0.05 10*3/uL; Neutrophils % 91.8 % (38.7-73.9); Platelet Count 282 T/CUMM (130-400); Red Blood Count 3.33 MC/CUMM (3.8-5.5); Red Cell Distribution Width 18.6 % (9.3-17.3); White Blood Count 17.8 T/CUMM (4-12)
[2021-09-08 04:05] LABS: Calcium 8.6 MG/DL (8.5-10.1); Osmolality,Calculated 275.5 MOS/KG (273-304)
[2021-09-08 04:23] LABS: Lymphocytes 5 % (20-55); Segmented Neutrophils 94 % (50-85); Total Cells Counted 100
[2021-09-08 04:24] LABS: Platelet Estimate Adequate
[2021-09-08] MEDS: LEVOTHYROXINE 50 MCG TABLET PO SCH (05:49)
[2021-09-08] MEDS ORDERED: ALBUMIN 25% 25 GM/100 ML VIAL IV ONE (08:07)
[2021-09-08] MEDS: PANTOPRAZOLE 40 MG TABLET PO SCH (08:38)
[2021-09-08] MEDS: INSULIN LISPRO 100 UNIT/ML SUBCUT SCH ×4 (08:48→21:10)
[2021-09-08] MEDS: METOPROLOL SUCCINATE XL 25 MG TABLET PO SCH (10:01)
[2021-09-08] MEDS: AMIODARONE INJ 450 MG in DEXTROSE 5% 241 ML IV SCH (10:12)
[2021-09-08] MEDS: PHENYLEPHRINE DRIP 40 MG/250 ML PREMIX IV PRN ×2 (10:18→19:12)
[2021-09-08] MEDS: HYDROCORTISONE 100 MG VIAL IV SCH ×2 (11:31→21:38)
[2021-09-08] MEDS ORDERED: AMIODARONE 200 MG TABLET PO SCH (12:00)
[2021-09-08] MEDS: cefTRIAXone 2,000 MG in SODIUM CHLORIDE 0.9% 100 ML IV SCH (14:03)
[2021-09-08] MEDS: ALBUMIN 25% 12.5 GM/50 ML VIAL IV SCH ×2 (15:07→21:37)
[2021-09-09] MEDS: PHENYLEPHRINE DRIP 40 MG/250 ML PREMIX IV PRN (04:08)
[2021-09-09 04:30] LABS: Basophils % 0.2 % (0.0-0.8); Hematocrit 24.3 VOL% (35.7-47.0); Hemoglobin 7.5 GM/DL (12.0-16.0); Immature Granulocytes % 1.2 %; Immature Granulocytes Absolute 0.23 #; Lymphocytes # 0.7 10*3/uL (1.4-4.0); Lymphocytes % 3.6 % (21.3-54.2); Mean Corpuscular HGB Conc 30.9 GM/DL (32-36); Mean Corpuscular Volume 84.4 FL (87-102); Mean Platelet Volume 11.1 FL (9.6-12.0); NRBC # 0.11 10*3/uL; Platelet Count 266 T/CUMM (130-400); Red Blood Count 2.88 MC/CUMM (3.8-5.5); Red Cell Distribution Width 18.6 % (9.3-17.3); White Blood Count 18.5 T/CUMM (4-12)
[2021-09-09 05:02] LABS: Band Neutrophils 1 % (0-10); Hypochromia 1+; Lymphocytes 3 % (20-55); Microcytosis 1+; Platelet Estimate Adequate; Segmented Neutrophils 94 % (50-85); Total Cells Counted 100
[2021-09-09 05:20] LABS: Calcium 8.8 MG/DL (8.5-10.1); Osmolality,Calculated 279.4 MOS/KG (273-304); Potassium 4.7 MMOL/L (3.5-5.1)
[2021-09-09] MEDS: ALBUMIN 25% 12.5 GM/50 ML VIAL IV SCH ×3 (05:57→22:10)
[2021-09-09] MEDS: LEVOTHYROXINE 50 MCG TABLET PO SCH (05:58)
[2021-09-09] MEDS: INSULIN LISPRO 100 UNIT/ML SUBCUT SCH ×4 (07:39→21:22)
[2021-09-09] MEDS: PANTOPRAZOLE 40 MG TABLET PO SCH (09:29)
[2021-09-09] MEDS: cefTRIAXone 2,000 MG in SODIUM CHLORIDE 0.9% 100 ML IV SCH (12:31)
[2021-09-10 04:27] LABS: Basophils % 0.2 % (0.0-0.8); Hematocrit 22.9 VOL% (35.7-47.0); Hemoglobin 6.7 GM/DL (12.0-16.0); Immature Granulocytes % 1.2 %; Immature Granulocytes Absolute 0.15 #; Lymphocytes # 0.6 10*3/uL (1.4-4.0); Lymphocytes % 4.4 % (21.3-54.2); Mean Corpuscular HGB Conc 29.3 GM/DL (32-36); Mean Corpuscular Volume 86.4 FL (87-102); Mean Platelet Volume 10.3 FL (9.6-12.0); Monocytes % 2.6 % (1.7-12.7); NRBC # 0.05 10*3/uL; Neutrophils % 91.6 % (38.7-73.9); Platelet Count 176 T/CUMM (130-400); Red Blood Count 2.65 MC/CUMM (3.8-5.5); Red Cell Distribution Width 18.5 % (9.3-17.3); White Blood Count 12.9 T/CUMM (4-12)
[2021-09-10 04:30] LABS: Calcium 8.7 MG/DL (8.5-10.1); Osmolality,Calculated 284.4 MOS/KG (273-304); Potassium 4.8 MMOL/L (3.5-5.1)
[2021-09-10 05:03] LABS: Hypochromia 1+; Lymphocytes 5 % (20-55); Microcytosis 1+; Nucleated Red Blood Cells 2 (0-5); Platelet Estimate Adequate; Segmented Neutrophils 92 % (50-85); Total Cells Counted 100
[2021-09-10] MEDS: ALBUMIN 25% 12.5 GM/50 ML VIAL IV SCH (05:19)
[2021-09-10] MEDS: LEVOTHYROXINE 50 MCG TABLET PO SCH (06:01)
[2021-09-10] MEDS: INSULIN LISPRO 100 UNIT/ML SUBCUT SCH ×4 (08:27→20:14)
[2021-09-10] MEDS ORDERED: SODIUM CHLORIDE 0.9% 1,000 ML IV PRN (08:49)
[2021-09-10] MEDS: PANTOPRAZOLE 40 MG TABLET PO SCH (08:52)
[2021-09-10] MEDS: cefTRIAXone 2,000 MG in SODIUM CHLORIDE 0.9% 100 ML IV SCH (12:18)
[2021-09-11 04:06] LABS: Basophils % 0.1 % (0.0-0.8); Hematocrit 23.2 VOL% (35.7-47.0); Hemoglobin 6.8 GM/DL (12.0-16.0); Immature Granulocytes % 1.1 %; Immature Granulocytes Absolute 0.13 #; Lymphocytes # 0.9 10*3/uL (1.4-4.0); Lymphocytes % 7.6 % (21.3-54.2); Mean Corpuscular HGB Conc 29.3 GM/DL (32-36); Mean Corpuscular Volume 87.2 FL (87-102); Mean Platelet Volume 11.3 FL (9.6-12.0); Monocytes % 3.4 % (1.7-12.7); NRBC # 0.02 10*3/uL; Neutrophils % 87.8 % (38.7-73.9); Platelet Count 178 T/CUMM (130-400); Red Blood Count 2.66 MC/CUMM (3.8-5.5); Red Cell Distribution Width 18.6 % (9.3-17.3); White Blood Count 11.5 T/CUMM (4-12)
[2021-09-11 04:21] LABS: Calcium 8.4 MG/DL (8.5-10.1); Osmolality,Calculated 288.7 MOS/KG (273-304); Potassium 4.8 MMOL/L (3.5-5.1)
[2021-09-11] MEDS: LEVOTHYROXINE 50 MCG TABLET PO SCH (06:13)
[2021-09-11] MEDS: INSULIN LISPRO 100 UNIT/ML SUBCUT SCH ×4 (08:08→20:04)
[2021-09-11] MEDS ORDERED: SODIUM CHLORIDE 0.9% 1,000 ML IV PRN (08:47)
[2021-09-11] MEDS: PANTOPRAZOLE 40 MG TABLET PO SCH (08:58)
[2021-09-11] MEDS: METOPROLOL TARTRATE 25 MG TABLET PO SCH ×2 (14:40→20:04)
[2021-09-11] MEDS: cefTRIAXone 2,000 MG in SODIUM CHLORIDE 0.9% 100 ML IV SCH (17:15)
[2021-09-11] MEDS: CALCIUM ACETATE 667 MG CAPSULE PO SCH ×2 (17:25→17:31)
[2021-09-11 17:40] LABS: Hematocrit 26.9 VOL% (35.7-47.0); Hemoglobin 8.2 GM/DL (12.0-16.0)
[2021-09-12 04:06] LABS: Basophils % 0.1 % (0.0-0.8); Eosinophils % 0.1 % (0.00-10.9); Hematocrit 25.1 VOL% (35.7-47.0); Hemoglobin 7.6 GM/DL (12.0-16.0); Immature Granulocytes % 0.9 %; Lymphocytes # 0.6 10*3/uL (1.4-4.0); Lymphocytes % 5.6 % (21.3-54.2); Mean Corpuscular HGB Conc 30.3 GM/DL (32-36); Mean Corpuscular Volume 87.5 FL (87-102); Mean Platelet Volume 11.2 FL (9.6-12.0); Monocytes % 2.8 % (1.7-12.7); NRBC # 0.02 10*3/uL; Neutrophils % 90.5 % (38.7-73.9); Platelet Count 163 T/CUMM (130-400); Red Blood Count 2.87 MC/CUMM (3.8-5.5); Red Cell Distribution Width 17.7 % (9.3-17.3); White Blood Count 11.4 T/CUMM (4-12)
[2021-09-12 04:26] LABS: Calcium 8.4 MG/DL (8.5-10.1); Osmolality,Calculated 286.2 MOS/KG (273-304); Potassium 4.4 MMOL/L (3.5-5.1)
[2021-09-12] MEDS: LEVOTHYROXINE 50 MCG TABLET PO SCH (05:33)
[2021-09-12] MEDS: INSULIN LISPRO 100 UNIT/ML SUBCUT SCH ×4 (08:25→20:30)
[2021-09-12] MEDS ORDERED: propofoL 200 MG/20 ML VIAL IV ONE (09:40)
[2021-09-12] MEDS ORDERED: ETOMIDATE 40 MG/20 ML VIAL IV ONE (09:40)
[2021-09-12] MEDS ORDERED: fentaNYL 100 MCG/2 ML VIAL ONE ×2 (09:40→12:05)
[2021-09-12] MEDS ORDERED: LIDOCAINE 2% 5 ML VIAL ONE (09:40)
[2021-09-12] MEDS ORDERED: MIDAZOLAM 2 MG/2 ML VIAL ONE (09:40)
[2021-09-12] MEDS ORDERED: ROCURONIUM 50 MG/5 ML VIAL IV ONE (09:40)
[2021-09-12] MEDS ORDERED: SUCCINYLCHOLINE 200 MG/10 ML VIAL ONE ×2 (09:40→09:44)
[2021-09-12] MEDS ORDERED: AMIODARONE 150 MG/3 ML VIAL ONE (09:44)
[2021-09-12] MEDS ORDERED: HEPARIN/NACL 0.9% 2 UNITS/ML 1,000 UNIT/500 ML BAG IV ONE (10:08)
[2021-09-12] MEDS ORDERED: SODIUM CHLORIDE 0.9% 250 ML IV SCH (10:30)
[2021-09-12] MEDS ORDERED: PHENYLEPHRINE 1 MG/10 ML SYRINGE IV ONE ×3 (11:27→12:15)
[2021-09-12] MEDS ORDERED: ESMOLOL 100 MG/10 ML VIAL IV ONE (11:27)
[2021-09-12] MEDS ORDERED: SODIUM CHLORIDE 0.9% 250 ML IV ONE (11:38)
[2021-09-12] MEDS ORDERED: ONDANSETRON 4 MG/2 ML VIAL ONE (11:39)
[2021-09-12] MEDS ORDERED: GLYCOPYRROLATE 0.4 MG/2 ML VIAL ONE (11:44)
[2021-09-12] MEDS ORDERED: SEVOFLURANE 1 UNIT/15 MINUTE INH ONE (11:49)
[2021-09-12] MEDS: METOPROLOL TARTRATE 25 MG TABLET PO SCH ×2 (12:10→20:30)
[2021-09-12] MEDS: CALCIUM ACETATE 667 MG CAPSULE PO SCH ×3 (12:10→19:02)
[2021-09-12] MEDS: PANTOPRAZOLE 40 MG TABLET PO SCH (12:11)
[2021-09-12 12:13] LABS: ABG Base Excess 2.6 MMOL/L (-2.5-2.5); ABG HCO3 26.8 MMOL/L (20-26); ABG PCO2 34.9 MM HG (35-48); ABG PH 7.481 (7.35-7.45); ABG TCO2 24.3 MMOL/L (23-27); Glucose Heart Surgery 127 MG/DL (74-106); Hematocrit Heart Surgery 24.5 PERCENT (37-47); Hemoglobin Heart Surgery 7.9 G/DL (12.0-16.0); Potassium Heart/CVR 4.5 MMOL/L (3.5-5.1)
[2021-09-12] MEDS ORDERED: MEPERIDINE 25 MG/1 ML VIAL ONE (12:56)
[2021-09-12] MEDS: MEPERIDINE 25 MG/1 ML VIAL IV PRN ×2 (12:58→13:08)
[2021-09-12] MEDS: cefTRIAXone 2,000 MG in SODIUM CHLORIDE 0.9% 100 ML IV SCH (17:36)
[2021-09-13 04:42] LABS: Basophils % 0.1 % (0.0-0.8); Eosinophils % 0.2 % (0.00-10.9); Hematocrit 24.7 VOL% (35.7-47.0); Hemoglobin 7.5 GM/DL (12.0-16.0); Immature Granulocytes % 0.9 %; Immature Granulocytes Absolute 0.11 #; Lymphocytes # 0.7 10*3/uL (1.4-4.0); Lymphocytes % 6.1 % (21.3-54.2); Mean Corpuscular HGB Conc 30.4 GM/DL (32-36); Mean Platelet Volume 11.3 FL (9.6-12.0); Neutrophils % 88.7 % (38.7-73.9); Platelet Count 176 T/CUMM (130-400); Red Blood Count 2.84 MC/CUMM (3.8-5.5); Red Cell Distribution Width 18.1 % (9.3-17.3); White Blood Count 11.8 T/CUMM (4-12)
[2021-09-13 04:47] LABS: Calcium 8.5 MG/DL (8.5-10.1); Osmolality,Calculated 282.5 MOS/KG (273-304); Potassium 4.4 MMOL/L (3.5-5.1)
[2021-09-13] MEDS: LEVOTHYROXINE 50 MCG TABLET PO SCH (05:54)
[2021-09-13] MEDS: INSULIN LISPRO 100 UNIT/ML SUBCUT SCH ×3 (08:43→21:47)
[2021-09-13] MEDS: METOPROLOL TARTRATE 25 MG TABLET PO SCH ×2 (08:45→20:26)
[2021-09-13] MEDS: CALCIUM ACETATE 667 MG CAPSULE PO SCH ×3 (08:59→17:54)
[2021-09-13] MEDS: PANTOPRAZOLE 40 MG TABLET PO SCH (08:59)
[2021-09-13] MEDS: cefTRIAXone 2,000 MG in SODIUM CHLORIDE 0.9% 100 ML IV SCH (17:54)
[2021-09-13] MEDS: SIMVASTATIN 40 MG TABLET PO SCH (20:28)
[2021-09-14] MEDS: INSULIN LISPRO 100 UNIT/ML SUBCUT SCH ×5 (00:58→20:27)
[2021-09-14] MEDS: LEVOTHYROXINE 50 MCG TABLET PO SCH (06:26)
[2021-09-14 06:39] LABS: Basophils % 0.1 % (0.0-0.8); Eosinophils % 0.4 % (0.00-10.9); Hematocrit 21.9 VOL% (35.7-47.0); Hemoglobin 6.5 GM/DL (12.0-16.0); Immature Granulocytes % 0.8 %; Immature Granulocytes Absolute 0.06 #; Lymphocytes # 0.7 10*3/uL (1.4-4.0); Lymphocytes % 9.1 % (21.3-54.2); Mean Corpuscular HGB Conc 29.7 GM/DL (32-36); Mean Corpuscular Volume 88.7 FL (87-102); Mean Platelet Volume 12.5 FL (9.6-12.0); Monocytes % 5.9 % (1.7-12.7); NRBC # 0.02 10*3/uL; Neutrophils % 83.7 % (38.7-73.9); Platelet Count 190 T/CUMM (130-400); Red Blood Count 2.47 MC/CUMM (3.8-5.5); Red Cell Distribution Width 18.4 % (9.3-17.3)
[2021-09-14 07:03] LABS: Calcium 8.2 MG/DL (8.5-10.1); Osmolality,Calculated 283.1 MOS/KG (273-304); Potassium 4.3 MMOL/L (3.5-5.1)
[2021-09-14] MEDS: CALCIUM ACETATE 667 MG CAPSULE PO SCH ×3 (08:26→16:47)
[2021-09-14] MEDS: METOPROLOL TARTRATE 25 MG TABLET PO SCH ×2 (08:27→20:20)
[2021-09-14] MEDS: PANTOPRAZOLE 40 MG TABLET PO SCH (08:27)
[2021-09-14] MEDS: cefTRIAXone 2,000 MG in SODIUM CHLORIDE 0.9% 100 ML IV SCH (16:47)
[2021-09-14] MEDS: SIMVASTATIN 40 MG TABLET PO SCH (20:20)
[2021-09-15] MEDS: LEVOTHYROXINE 50 MCG TABLET PO SCH (05:46)
[2021-09-15 05:52] LABS: Basophils % 0.1 % (0.0-0.8); Eosinophils % 0.5 % (0.00-10.9); Hematocrit 20.3 VOL% (35.7-47.0); Immature Granulocytes % 0.5 %; Immature Granulocytes Absolute 0.04 #; Lymphocytes # 0.8 10*3/uL (1.4-4.0); Lymphocytes % 11.2 % (21.3-54.2); Mean Corpuscular HGB Conc 29.6 GM/DL (32-36); Mean Corpuscular Volume 89.4 FL (87-102); Monocytes % 6.5 % (1.7-12.7); Neutrophils % 81.2 % (38.7-73.9); Platelet Count 192 T/CUMM (130-400); Red Blood Count 2.27 MC/CUMM (3.8-5.5); Red Cell Distribution Width 18.8 % (9.3-17.3); White Blood Count 7.4 T/CUMM (4-12)
[2021-09-15 06:06] LABS: Calcium 8.4 MG/DL (8.5-10.1); Osmolality,Calculated 283.4 MOS/KG (273-304); Potassium 4.6 MMOL/L (3.5-5.1)
[2021-09-15] MEDS: INSULIN LISPRO 100 UNIT/ML SUBCUT SCH ×3 (07:26→17:08)
[2021-09-15] MEDS: CALCIUM ACETATE 667 MG CAPSULE PO SCH ×3 (09:40→17:08)
[2021-09-15] MEDS: PANTOPRAZOLE 40 MG TABLET PO SCH (11:55)
[2021-09-15] MEDS: METOPROLOL TARTRATE 25 MG TABLET PO SCH (11:55)
[2021-09-15 13:30] LABS: Hematocrit 28.8 VOL% (35.7-47.0); Hemoglobin 8.6 GM/DL (12.0-16.0)
[2021-09-15 16:04] VITALS: BP 131/68
[2021-09-15] MEDS: cefTRIAXone 2,000 MG in SODIUM CHLORIDE 0.9% 100 ML IV SCH (17:08)
[2021-09-18] MEDS ORDERED: ERGOCALCIFEROL 50,000 UNIT CAPSULE PO SCH (09:00)
== END 2021-09-15 17:07 | DRG 480 ==
LOC: EDUNIT# → EDBD → N.ED 13:42 → N.3E 14:40 → N.EDINP 16:23 → SUATTDRO 16:23 → N.3E 18:00 → N.CC 09-05 17:19 → N.3E 09-13 19:53
PROVIDERS: ADMIT Internal Medicine; ATTEND Hospitalist

== ENCOUNTER 2021-11-17 16:59 | Inpatient (IN) ==
[2021-11-17 17:26] LABS: Basophils % 0.2 % (0.0-0.8); Eosinophils % 0.1 % (0.00-10.9); Hematocrit 23.7 VOL% (35.7-47.0); Hemoglobin 6.8 GM/DL (12.0-16.0); Immature Granulocytes % 0.8 %; Immature Granulocytes Absolute 0.09 #; Lymphocytes # 1.1 10*3/uL (1.4-4.0); Mean Corpuscular HGB Conc 28.7 GM/DL (32-36); Mean Corpuscular Volume 90.1 FL (87-102); Mean Platelet Volume 9.6 FL (9.6-12.0); Monocytes # 0.7 10*3/uL (0.11-0.8); Monocytes % 6.4 % (1.7-12.7); NRBC # 0.02 10*3/uL; Neutrophils % 82.5 % (38.7-73.9); Platelet Count 232 T/CUMM (130-400); Red Blood Count 2.63 MC/CUMM (3.8-5.5); Red Cell Distribution Width 24.5 % (9.3-17.3); White Blood Count 11.2 T/CUMM (4-12)
[2021-11-17 17:49] LABS: Alanine Aminotransferase < 6 U/L (13-56); Albumin 1.6 G/DL (3.4-5.0); Alkaline Phosphatase 91 U/L (45-117); Aspartate Amino Transferase 9 U/L (0-37); Blood Urea Nitrogen 26 MG/DL (7-18); Calcium 8.8 MG/DL (8.5-10.1); Carbon Dioxide 30 MMOL/L (21-32); Chloride 103 MMOL/L (98-107); Glucose 153 MG/DL (74-106); Osmolality,Calculated 280.8 MOS/KG (273-304); Potassium 3.1 MMOL/L (3.5-5.1); Sodium 137 MMOL/L (136-145); Total Protein 5.3 G/DL (6.4-8.2)
[2021-11-17 18:13] LABS: Platelet Estimate Normal
[2021-11-17 18:14] LABS: Hypochromia 1+; Poikilocytosis 1+
[2021-11-17 18:15] LABS: Acanthocytes Few; Burr Cells 1+; Schistocytes Few; Target Cells Few; Tear Drop Cells Few
[2021-11-17 18:16] LABS: Anisocytosis 1+
[2021-11-17] MEDS ORDERED: SODIUM CHLORIDE 0.9% 1,000 ML IV PRN (18:20)
[2021-11-17] MEDS ORDERED: guaiFENesin/DM ER 600-30 MG TABLET PO PRN (18:29)
[2021-11-17] MEDS ORDERED: diphenhydrAMINE CAP 25 MG CAPSULE PO PRN (18:29)
[2021-11-17] MEDS ORDERED: ACETAMINOPHEN 325 MG TABLET PO PRN (18:29)
[2021-11-17] MEDS ORDERED: ZALEPLON 5 MG CAPSULE PO PRN (18:29)
[2021-11-17] MEDS ORDERED: NICOTINE 21 MG/24 HR PATCH TRANSDERM PRN (18:29)
[2021-11-17] MEDS ORDERED: ONDANSETRON 4 MG/2 ML VIAL IV PRN (18:29)
[2021-11-17] MEDS ORDERED: GLUCAGON 1 MG VIAL IM PRN (18:29)
[2021-11-17] MEDS ORDERED: hydrALAZINE 20 MG/1 ML VIAL IV PRN (18:29)
[2021-11-17] MEDS ORDERED: BISACODYL 5 MG TABLET PO PRN (18:29)
[2021-11-17] MEDS: ALBUTEROL/IPRATROPIUM 3 ML NEB RESP TX SCH (19:08)
[2021-11-17] MEDS ORDERED: DEXTROSE 10% 250 ML BAG IV PRN (19:17)
[2021-11-17] MEDS: INSULIN LISPRO 100 UNIT/ML SUBCUT SCH (22:49)
[2021-11-17] MEDS ORDERED: POTASSIUM CHLORIDE 20 MEQ TABLET PO ONE (23:00)
[2021-11-17] MEDS: PANTOPRAZOLE 40 MG VIAL IV SCH (23:57)
[2021-11-18] MEDS: ALBUTEROL/IPRATROPIUM 3 ML NEB RESP TX SCH ×4 (03:30→20:30)
[2021-11-18] MEDS ORDERED: PANTOPRAZOLE 40 MG TABLET PO SCH (06:00)
[2021-11-18] MEDS: INSULIN LISPRO 100 UNIT/ML SUBCUT SCH ×4 (08:05→23:10)
[2021-11-18] MEDS: PANTOPRAZOLE 40 MG VIAL IV SCH (09:20)
[2021-11-18 11:17] LABS: Calcium 8.5 MG/DL (8.5-10.1); Osmolality,Calculated 282.5 MOS/KG (273-304); Potassium 3.3 MMOL/L (3.5-5.1)
[2021-11-18 11:20] LABS: % Iron Saturation 46.9 % (18-50)
[2021-11-18 11:30] LABS: Basophils % 0.1 % (0.0-0.8); Hematocrit 22.5 VOL% (35.7-47.0); Hemoglobin 6.7 GM/DL (12.0-16.0); Immature Granulocytes % 0.6 %; Immature Granulocytes Absolute 0.06 #; Lymphocytes # 0.5 10*3/uL (1.4-4.0); Lymphocytes % 5.1 % (21.3-54.2); Mean Corpuscular HGB Conc 29.8 GM/DL (32-36); Mean Corpuscular Volume 87.9 FL (87-102); Mean Platelet Volume 9.7 FL (9.6-12.0); Monocytes # 0.5 10*3/uL (0.11-0.8); Monocytes % 4.9 % (1.7-12.7); Neutrophils % 89.3 % (38.7-73.9); Platelet Count 202 T/CUMM (130-400); Red Blood Count 2.56 MC/CUMM (3.8-5.5); Red Cell Distribution Width 22.7 % (9.3-17.3)
[2021-11-18 11:54] LABS: Alanine Aminotransferase < 6 U/L (13-56); Albumin 1.6 G/DL (3.4-5.0); Alkaline Phosphatase 80 U/L (45-117); Aspartate Amino Transferase 9 U/L (0-37); Bilirubin,Indirect 0.4 MG/DL (0.0-1.0); Total Protein 5.1 G/DL (6.4-8.2)
[2021-11-18 12:04] LABS: Hypochromia 1+; Microcytosis 1+
[2021-11-18 12:05] LABS: Target Cells Slight
[2021-11-18 12:07] LABS: Platelet Estimate Normal
[2021-11-18 12:10] LABS: Basophils % 0.1 % (0.0-0.8); Eosinophils % 0.1 % (0.00-10.9); Hematocrit 23.6 VOL% (35.7-47.0); Hemoglobin 6.9 GM/DL (12.0-16.0); Immature Granulocytes % 0.7 %; Immature Granulocytes Absolute 0.07 #; Lymphocytes # 0.6 10*3/uL (1.4-4.0); Lymphocytes % 5.7 % (21.3-54.2); Mean Corpuscular HGB Conc 29.2 GM/DL (32-36); Mean Corpuscular Volume 89.7 FL (87-102); Mean Platelet Volume 9.4 FL (9.6-12.0); Monocytes # 0.5 10*3/uL (0.11-0.8); Monocytes % 5.4 % (1.7-12.7); Platelet Count 205 T/CUMM (130-400); Red Blood Count 2.63 MC/CUMM (3.8-5.5); White Blood Count 9.6 T/CUMM (4-12)
[2021-11-18 12:13] LABS: Calcium 8.3 MG/DL (8.5-10.1); Osmolality,Calculated 282.3 MOS/KG (273-304); Potassium 3.3 MMOL/L (3.5-5.1)
[2021-11-18 16:20] LABS: Hepatitis B Surface Ag Quant < 0.10 Index; Hepatitis B Surface Ag Result Non-Reactive (NonReactive)
[2021-11-18 23:00] LABS: Reactive Lymphocytes 1+
[2021-11-18] MEDS: MIRTAZAPINE 15 MG TABLET PO SCH (23:14)
[2021-11-18] MEDS: PANTOPRAZOLE 40 MG TABLET PO SCH (23:14)
[2021-11-18 23:22] LABS: Hypochromia 2+; Platelet Estimate Normal; Target Cells 1+
[2021-11-19] MEDS: ALBUTEROL/IPRATROPIUM 3 ML NEB RESP TX SCH ×4 (00:32→20:14)
[2021-11-19 07:28] LABS: Basophils % 0.1 % (0.0-0.8); Eosinophils % 0.1 % (0.00-10.9); Hematocrit 23.5 VOL% (35.7-47.0); Hemoglobin 6.8 GM/DL (12.0-16.0); Immature Granulocytes % 0.6 %; Immature Granulocytes Absolute 0.07 #; Lymphocytes # 0.7 10*3/uL (1.4-4.0); Lymphocytes % 6.3 % (21.3-54.2); Mean Corpuscular HGB Conc 28.9 GM/DL (32-36); Mean Platelet Volume 9.8 FL (9.6-12.0); Monocytes # 0.6 10*3/uL (0.11-0.8); Monocytes % 5.7 % (1.7-12.7); Neutrophils % 87.2 % (38.7-73.9); Platelet Count 205 T/CUMM (130-400); Red Blood Count 2.61 MC/CUMM (3.8-5.5); Red Cell Distribution Width 23.3 % (9.3-17.3); White Blood Count 10.9 T/CUMM (4-12)
[2021-11-19 07:44] LABS: Calcium 8.4 MG/DL (8.5-10.1); Osmolality,Calculated 280.5 MOS/KG (273-304); Potassium 3.4 MMOL/L (3.5-5.1)
[2021-11-19 08:00] LABS: Anisocytosis 1+; Hypochromia 1+; Microcytosis 1+
[2021-11-19 08:03] LABS: Acanthocytes Few; Polychromasia Slight
[2021-11-19 08:04] LABS: Platelet Estimate Normal
[2021-11-19] MEDS: INSULIN LISPRO 100 UNIT/ML SUBCUT SCH ×4 (10:12→21:12)
[2021-11-19] MEDS: PANTOPRAZOLE 40 MG TABLET PO SCH ×2 (10:23→20:50)
[2021-11-19] MEDS: BISACODYL 5 MG TABLET PO SCH ×3 (10:23→23:49)
[2021-11-19] MEDS ORDERED: EPOETIN ALFA-EPBX 4,000 UNIT/ML VIAL IV PRN (10:29)
[2021-11-19] MEDS ORDERED: SODIUM CHLORIDE 0.9% 1,000 ML IV PRN ×2 (15:07→15:27)
[2021-11-19] MEDS ORDERED: POTASSIUM CHLORIDE 10 MEQ TABLET PO ONE (15:27)
[2021-11-19] MEDS: DILTIAZEM 25 MG/5 ML VIAL IV ONE ×2 (15:45→16:09)
[2021-11-19] MEDS ORDERED: POLYETHYLENE GLYCOL 3350/ELECTROLYTES 4,000 ML BOTTLE PO ONE (16:00)
[2021-11-19 16:45] LABS: Basophils % 0.2 % (0.0-0.8); Eosinophils % 0.2 % (0.00-10.9); Hematocrit 25.7 VOL% (35.7-47.0); Hemoglobin 7.4 GM/DL (12.0-16.0); Immature Granulocytes % 0.6 %; Immature Granulocytes Absolute 0.07 #; Lymphocytes # 1.1 10*3/uL (1.4-4.0); Lymphocytes % 9.7 % (21.3-54.2); Mean Corpuscular HGB Conc 28.8 GM/DL (32-36); Mean Corpuscular Volume 91.8 FL (87-102); Mean Platelet Volume 10.4 FL (9.6-12.0); Monocytes # 0.6 10*3/uL (0.11-0.8); Monocytes % 5.4 % (1.7-12.7); NRBC # 0.03 10*3/uL; Neutrophils % 83.9 % (38.7-73.9); Platelet Count 157 T/CUMM (130-400); Red Cell Distribution Width 23.9 % (9.3-17.3); White Blood Count 11.5 T/CUMM (4-12)
[2021-11-19] MEDS: DILTIAZEM INJ 100 MG in SODIUM CHLORIDE 0.9% 100 ML IV SCH (16:49)
[2021-11-19 17:12] LABS: Anisocytosis 1+; Hypochromia 2+; Target Cells 1+
[2021-11-19 17:13] LABS: Burr Cells 1+; Elliptocytes Few; Platelet Estimate Adequate
[2021-11-19] MEDS: MIRTAZAPINE 15 MG TABLET PO SCH (20:51)
[2021-11-19] MEDS ORDERED: MAGNESIUM CITRATE 300 ML BOTTLE PO ONE (21:00)
[2021-11-20] MEDS: ALBUTEROL/IPRATROPIUM 3 ML NEB RESP TX SCH ×4 (00:22→19:00)
[2021-11-20] MEDS: DILTIAZEM INJ 100 MG in SODIUM CHLORIDE 0.9% 100 ML IV SCH ×2 (02:07→16:52)
[2021-11-20 07:37] LABS: Basophils % 0.1 % (0.0-0.8); Eosinophils % 0.2 % (0.00-10.9); Hematocrit 22.2 VOL% (35.7-47.0); Immature Granulocytes % 0.7 %; Immature Granulocytes Absolute 0.07 #; Lymphocytes # 0.9 10*3/uL (1.4-4.0); Lymphocytes % 9.3 % (21.3-54.2); Mean Corpuscular HGB Conc 28.4 GM/DL (32-36); Mean Corpuscular Volume 90.6 FL (87-102); Mean Platelet Volume 10.2 FL (9.6-12.0); Monocytes # 0.5 10*3/uL (0.11-0.8); Monocytes % 5.5 % (1.7-12.7); NRBC # 0.02 10*3/uL; Neutrophils % 84.2 % (38.7-73.9); Platelet Count 207 T/CUMM (130-400); Red Blood Count 2.45 MC/CUMM (3.8-5.5); Red Cell Distribution Width 23.8 % (9.3-17.3); White Blood Count 9.8 T/CUMM (4-12)
[2021-11-20 07:41] LABS: Hemoglobin 6.3 GM/DL (12.0-16.0)
[2021-11-20 07:43] LABS: Calcium 8.5 MG/DL (8.5-10.1); Osmolality,Calculated 277.7 MOS/KG (273-304); Potassium 3.6 MMOL/L (3.5-5.1)
[2021-11-20] MEDS: INSULIN LISPRO 100 UNIT/ML SUBCUT SCH ×4 (08:06→22:06)
[2021-11-20] MEDS: PANTOPRAZOLE 40 MG TABLET PO SCH ×2 (10:04→22:05)
[2021-11-20] MEDS ORDERED: ZINC OXIDE PASTE 113 GM TUBE TOP PRN (11:19)
[2021-11-20] MEDS: DILTIAZEM CD 240 MG CAPSULE PO SCH (14:00)
[2021-11-20] MEDS ORDERED: NON-FORMULARY MEDICATION (Cholecalciferol (Vitamin D3) 1,250 mcg (50,000 unit) Capsule) PO SCH (15:00)
[2021-11-20] MEDS: busPIRone 5 MG TABLET PO SCH ×2 (16:51→22:05)
[2021-11-20] MEDS: SODIUM CHLORIDE 0.9% 500 ML IV SCH (20:44)
[2021-11-20] MEDS: ATORVASTATIN 20 MG TABLET PO SCH (22:05)
[2021-11-20] MEDS: METOPROLOL TARTRATE 25 MG TABLET PO SCH (22:06)
[2021-11-20] MEDS: MIRTAZAPINE 15 MG TABLET PO SCH (22:06)
[2021-11-21 00:21] LABS: Calcium 8.6 MG/DL (8.5-10.1); Osmolality,Calculated 282.5 MOS/KG (273-304); Potassium 3.7 MMOL/L (3.5-5.1)
[2021-11-21 00:29] LABS: Basophils % 0.1 % (0.0-0.8); Eosinophils % 0.2 % (0.00-10.9); Hematocrit 23.8 VOL% (35.7-47.0); Hemoglobin 6.8 GM/DL (12.0-16.0); Immature Granulocytes % 0.8 %; Immature Granulocytes Absolute 0.08 #; Lymphocytes # 0.9 10*3/uL (1.4-4.0); Lymphocytes % 8.5 % (21.3-54.2); Mean Corpuscular HGB Conc 28.6 GM/DL (32-36); Mean Corpuscular Volume 91.2 FL (87-102); Mean Platelet Volume 10.1 FL (9.6-12.0); Monocytes # 0.6 10*3/uL (0.11-0.8); Monocytes % 6.2 % (1.7-12.7); Neutrophils % 84.2 % (38.7-73.9); Platelet Count 228 T/CUMM (130-400); Red Blood Count 2.61 MC/CUMM (3.8-5.5); Red Cell Distribution Width 23.7 % (9.3-17.3); White Blood Count 10.1 T/CUMM (4-12)
[2021-11-21 01:00] LABS: Platelet Estimate Adequate
[2021-11-21 01:01] LABS: Hypochromia 1+; Polychromasia 1+
[2021-11-21 01:03] LABS: Acanthocytes 1+
[2021-11-21] MEDS: LEVOTHYROXINE 50 MCG TABLET PO SCH (05:55)
[2021-11-21] MEDS: ALBUTEROL/IPRATROPIUM 3 ML NEB RESP TX SCH ×3 (07:03→19:15)
[2021-11-21] MEDS: INSULIN LISPRO 100 UNIT/ML SUBCUT SCH ×4 (08:10→21:44)
[2021-11-21] MEDS: PANTOPRAZOLE 40 MG TABLET PO SCH ×2 (10:27→22:08)
[2021-11-21] MEDS: SERTRALINE 50 MG TABLET PO SCH (10:27)
[2021-11-21] MEDS: DILTIAZEM CD 240 MG CAPSULE PO SCH (10:27)
[2021-11-21] MEDS: METOPROLOL TARTRATE 25 MG TABLET PO SCH ×2 (10:27→22:08)
[2021-11-21] MEDS: busPIRone 5 MG TABLET PO SCH ×3 (10:27→22:08)
[2021-11-21] MEDS ORDERED: SODIUM CHLORIDE 0.9% 1,000 ML IV PRN (12:14)
[2021-11-21] MEDS: DILTIAZEM INJ 100 MG in SODIUM CHLORIDE 0.9% 100 ML IV SCH (16:30)
[2021-11-21] MEDS ORDERED: POLYETHYLENE GLYCOL 3350/ELECTROLYTES 4,000 ML BOTTLE PO ONE (18:00)
[2021-11-21] MEDS: ATORVASTATIN 20 MG TABLET PO SCH (22:08)
[2021-11-22] MEDS: ALBUTEROL/IPRATROPIUM 3 ML NEB RESP TX SCH ×5 (01:20→20:11)
[2021-11-22 06:56] LABS: Basophils % 0.3 % (0.0-0.8); Eosinophils % 0.2 % (0.00-10.9); Immature Granulocytes % 0.7 %; Immature Granulocytes Absolute 0.08 #; Lymphocytes # 1.1 10*3/uL (1.4-4.0); Lymphocytes % 9.2 % (21.3-54.2); Mean Corpuscular HGB Conc 30.3 GM/DL (32-36); Mean Corpuscular Volume 89.9 FL (87-102); Mean Platelet Volume 10.3 FL (9.6-12.0); Monocytes # 0.6 10*3/uL (0.11-0.8); Monocytes % 5.5 % (1.7-12.7); Neutrophils % 84.1 % (38.7-73.9); Platelet Count 201 T/CUMM (130-400); White Blood Count 11.4 T/CUMM (4-12)
[2021-11-22 06:57] LABS: Red Blood Count 3.78 MC/CUMM (3.8-5.5)
[2021-11-22 06:58] LABS: Hemoglobin 10.3 GM/DL (12.0-16.0)
[2021-11-22] MEDS: METOPROLOL TARTRATE 25 MG TABLET PO SCH ×2 (11:59→21:32)
[2021-11-22] MEDS: SERTRALINE 50 MG TABLET PO SCH (11:59)
[2021-11-22] MEDS: busPIRone 5 MG TABLET PO SCH ×3 (11:59→21:32)
[2021-11-22] MEDS: DILTIAZEM CD 240 MG CAPSULE PO SCH (11:59)
[2021-11-22] MEDS: PANTOPRAZOLE 40 MG TABLET PO SCH ×2 (11:59→21:33)
[2021-11-22] MEDS: LEVOTHYROXINE 50 MCG TABLET PO SCH (11:59)
[2021-11-22] MEDS: SODIUM CHLORIDE 0.9% 500 ML IV SCH (12:55)
[2021-11-22] MEDS: INSULIN LISPRO 100 UNIT/ML SUBCUT SCH ×3 (12:56→22:51)
[2021-11-22 13:31] LABS: Basophils % 0.1 % (0.0-0.8); Eosinophils % 0.2 % (0.00-10.9); Hematocrit 31.4 VOL% (35.7-47.0); Hemoglobin 9.6 GM/DL (12.0-16.0); Immature Granulocytes % 0.4 %; Immature Granulocytes Absolute 0.04 #; Lymphocytes # 0.9 10*3/uL (1.4-4.0); Lymphocytes % 9.8 % (21.3-54.2); Mean Corpuscular HGB Conc 30.6 GM/DL (32-36); Mean Corpuscular Volume 89.2 FL (87-102); Mean Platelet Volume 9.9 FL (9.6-12.0); Monocytes # 0.4 10*3/uL (0.11-0.8); Monocytes % 4.3 % (1.7-12.7); Neutrophils % 85.2 % (38.7-73.9); Platelet Count 210 T/CUMM (130-400); Red Blood Count 3.52 MC/CUMM (3.8-5.5); Red Cell Distribution Width 20.6 % (9.3-17.3); White Blood Count 8.9 T/CUMM (4-12)
[2021-11-22 13:47] LABS: Calcium 8.6 MG/DL (8.5-10.1); Osmolality,Calculated 282.5 MOS/KG (273-304); Potassium 3.7 MMOL/L (3.5-5.1)
[2021-11-22] MEDS: DILTIAZEM INJ 100 MG in SODIUM CHLORIDE 0.9% 100 ML IV SCH (16:38)
[2021-11-22] MEDS: ATORVASTATIN 20 MG TABLET PO SCH (21:32)
[2021-11-23] MEDS: ALBUTEROL/IPRATROPIUM 3 ML NEB RESP TX SCH ×3 (00:19→14:30)
[2021-11-23] MEDS: LEVOTHYROXINE 50 MCG TABLET PO SCH (05:53)
[2021-11-23 07:13] LABS: Basophils % 0.3 % (0.0-0.8); Eosinophils % 0.3 % (0.00-10.9); Hematocrit 30.3 VOL% (35.7-47.0); Hemoglobin 9.3 GM/DL (12.0-16.0); Immature Granulocytes % 0.4 %; Immature Granulocytes Absolute 0.03 #; Lymphocytes # 1.1 10*3/uL (1.4-4.0); Lymphocytes % 15.1 % (21.3-54.2); Mean Corpuscular HGB Conc 30.7 GM/DL (32-36); Mean Corpuscular Volume 89.1 FL (87-102); Monocytes # 0.5 10*3/uL (0.11-0.8); Monocytes % 6.3 % (1.7-12.7); Neutrophils % 77.6 % (38.7-73.9); Platelet Count 196 T/CUMM (130-400); Red Cell Distribution Width 20.5 % (9.3-17.3); White Blood Count 7.1 T/CUMM (4-12)
[2021-11-23 07:31] LABS: Calcium 8.7 MG/DL (8.5-10.1); Osmolality,Calculated 281.7 MOS/KG (273-304); Potassium 3.7 MMOL/L (3.5-5.1)
[2021-11-23] MEDS: INSULIN LISPRO 100 UNIT/ML SUBCUT SCH ×3 (07:46→17:16)
[2021-11-23] MEDS: SODIUM CHLORIDE 0.9% 500 ML IV SCH (08:15)
[2021-11-23] MEDS ORDERED: PHENYLEPHRINE 1 MG/10 ML SYRINGE IV ONE (09:01)
[2021-11-23] MEDS ORDERED: propofoL 200 MG/20 ML VIAL IV ONE (09:01)
[2021-11-23] MEDS ORDERED: LIDOCAINE 2% 5 ML VIAL ONE (09:01)
[2021-11-23] MEDS ORDERED: VANCOMYCIN 125 MG CAPSULE PO SCH (12:00)
[2021-11-23] MEDS: busPIRone 5 MG TABLET PO SCH ×2 (14:25→14:30)
[2021-11-23] MEDS: METOPROLOL TARTRATE 25 MG TABLET PO SCH (14:30)
[2021-11-23] MEDS: SERTRALINE 50 MG TABLET PO SCH (14:31)
[2021-11-23] MEDS: PANTOPRAZOLE 40 MG TABLET PO SCH (14:31)
[2021-11-23] MEDS: DILTIAZEM CD 240 MG CAPSULE PO SCH (14:31)
[2021-11-23] MEDS: DILTIAZEM INJ 100 MG in SODIUM CHLORIDE 0.9% 100 ML IV SCH (14:41)
[2021-11-23 17:14] VITALS: BP 85/67
== END 2021-11-23 18:20 | DRG 371 ==
LOC: EDUNIT# → EDBD → N.ED 16:59 → SUATTDRO 18:29 → N.EDINP 18:29 → N.5E 20:04 → N.TELEN 11-19 15:27
PROVIDERS: ADMIT Internal Medicine; ATTEND Internal Medicine